=== PATIENT | male | born 1955 | race Two or more races ===

== ENCOUNTER 2018-02-10 19:08 | Inpatient (IN) | payer OTHER ==
[~2018-02-10] VITALS: Ht 177.8 cm; Wt 90.7 kg
[~2018-02-10 19:08] MED LIST: ALEVE220 M2 PO; CARAFATE1 G1 NG; COLACE100 MG ORAL; FEOSOL325 MG ORAL; LEVAQUIN500 MG ORAL; MIRALAX17 G2 ORAL; NORCO 5-325 TA1 EACH ORAL; PROTONIX40 MG ORAL; REGLAN5 MG ORAL; SLOW-MAG64 MG PO; TYLENOL EXTRA500 MG ORAL
[2018-02-10] MEDS ORDERED: Sodium Chloride 500ML 500 ML IV ONE (19:13)
[2018-02-10] MEDS ORDERED: Octreotide Acetate 500 MCG in Sodium Chloride 500ML 499 ML IV STA (19:27)
[2018-02-10 19:30] VITALS: BP 117/66
[2018-02-10] MEDS ORDERED: Pantoprazole Inj IVP ONE (19:30)
[2018-02-10] MEDS ORDERED: Pantoprazole 80 MG in NS 250 ML IV ONE (19:30)
[2018-02-10 19:41] LABS: HEMOGLOBIN 12.2 G/DL (14.2-18.0); MEAN CORPUSCULAR VOLUME 98 FL (80-99); PLATELET COUNT 382 K/UL (150-450); RED BLOOD COUNT 3.55 M/UL (4.70-6.10); RED CELL DISTRIBUTION WIDTH 12.9 % (11.6-14.8); WHITE BLOOD COUNT 21.8 K/UL (4.8-10.8)
[2018-02-10 19:49] LABS: ANION GAP 17 mmol/L (5-15); BLOOD UREA NITROGEN 108 mg/dL (7-18); CALCIUM 9.2 MG/DL (8.5-10.1); CARBON DIOXIDE 29 MMOL/L (21-32); CHLORIDE 83 MMOL/L (98-107); CREATININE 5.5 MG/DL (0.55-1.30); SODIUM 128 MMOL/L (136-145)
--- NOTE | 2018-02-10 19:56 | Emergency Room Report ---
History of Present Illness General Chief Complaint: Gastrointestinal Bleed Source: Patient Present Illness HPI Patient presents with complaints of vomiting bright red blood Patient has history of significant GI hemorrhage Had previous alcohol disease reports that he drinks regularly still Denies any diarrhea denies any blood in his stool He has epigastric pain Symptoms started earlier today Patient denies any recent travel or trauma Allergies: Coded Allergies: ASPIRIN (Verified Allergy, Mild, 10/20/14) Patient History Past Medical History: see triage record Pertinent Family History: none Reviewed Nursing Documentation: PMH: Agreed; PSxH: Agreed Nursing Documentation-PMH Hx Cardiac Problems: No Hx Cancer: No Hx Gastrointestinal Problems: Yes - Describes past GIB - states, "something popped in my stomach" ~ 2 yrs ago Hx Neurological Problems: No Hx Weakness: Yes Review of Systems All Other Systems: negative except mentioned in HPI Physical Exam Vital Signs Date Time Temp Pulse Resp B/P (MAP) Pulse Ox O2 Delivery O2 Flow Rate FiO2 02/10/18 19:04 98.2 116 20 86/67 98 Room Air Sp02 EP Interpretation: reviewed, normal General Appearance: mild distress - Cachectic and jaundice Head: normocephalic, atraumatic Eyes: bilateral eye PERRL, bilateral eye scleral icterus ENT: normal pharynx, no angioedema Neck: supple Respiratory: lungs clear, normal breath sounds Cardiovascular #1: regular rate, rhythm, no edema Gastrointestinal: non tender, soft, no mass Musculoskeletal: normal inspection Neurologic: alert, oriented x3, responsive Skin: pallor, jaundice Lymphatic: no adenopathy Procedures Critical Care Time Critical Care Time 80 minutes for critical presentation, hypotensive presentation and reports of GI bleed, requiring multiple re-evaluations concern for cardiopulmonary arrest and possible not including any procedural time Medical Decision Making Diagnostic Impression: Primary Impression: Gastrointestinal hemorrhage Additional Impressions: Leukocytosis Discitis ER Course Given the patient's history and presentation multiple differentials are considered Patient has significant history with previous surgery here Exploratory laparotomy previous GI bleed Patient is initiated on aggressive intervention Hemoglobin level returns at 12 at this time Given the patient's improvement with his blood pressure and heart rate Acute transfusion has been held however other acute intervention continuing Patient's white blood cell count is significantly elevated CT imaging reveals some evidence of discitis, there is also concern of infection Urine sample has previously been infected and patient was started on spectrum antibiotics Labs Test 02/10/18 19:15 White Blood Count 21.8 K/UL (4.8-10.8) Red Blood Count 3.55 M/UL (4.70-6.10) Hemoglobin 12.2 G/DL (14.2-18.0) Hematocrit 35.0 % (42.0-52.0) Mean Corpuscular Volume 98 FL (80-99) Mean Corpuscular Hemoglobin 34.2 PG (27.0-31.0) Mean Corpuscular Hemoglobin Concent 34.8 G/DL (32.0-36.0) Red Cell Distribution Width 12.9 % (11.6-14.8) Platelet Count 382 K/UL (150-450) Mean Platelet Volume 7.9 FL (6.5-10.1) Neutrophils (%) (Auto) % (45.0-75.0) Lymphocytes (%) (Auto) % (20.0-45.0) Monocytes (%) (Auto) % (1.0-10.0) Eosinophils (%) (Auto) % (0.0-3.0) Basophils (%) (Auto) % (0.0-2.0) Prothrombin Time 10.9 SEC (9.30-11.50) Prothromb Time International Ratio 1.0 (0.9-1.1) Activated Partial Thromboplast Time 34 SEC (23-33) Sodium Level 128 MMOL/L (136-145) Potassium Level 3.0 MMOL/L (3.5-5.1) Chloride Level 83 MMOL/L (98-107) Carbon Dioxide Level 29 MMOL/L (21-32) Anion Gap 17 mmol/L (5-15) Blood Urea Nitrogen 108 mg/dL (7-18) Creatinine 5.5 MG/DL (0.55-1.30) Estimat Glomerular Filtration Rate 10.5 mL/min (>60) Glucose Level 122 MG/DL (74-106) Calcium Level 9.2 MG/DL (8.5-10.1) Total Bilirubin 1.0 MG/DL (0.2-1.0) Aspartate Amino Transf (AST/SGOT) 72 U/L (15-37) Alanine Aminotransferase (ALT/SGPT) 18 U/L (12-78) Alkaline Phosphatase 264 U/L (46-116) Total Creatine Kinase 33 U/L (26-308) Creatine Kinase MB 0.9 NG/ML (0.0-3.6) Creatine Kinase MB Relative Index 2.7 Troponin I 0.000 ng/mL (0.000-0.056) Total Protein 7.5 G/DL (6.4-8.2) Albumin 1.9 G/DL (3.4-5.0) Globulin 5.6 g/dL Albumin/Globulin Ratio 0.3 (1.0-2.7) Rhythm Strip Diag. Results EP Interpretation: yes Rate: 77 Rhythm: NSR, no PVC's, no ectopy CT/MRI/US Diagnostic Results CT/MRI/US Diagnostic Results : Impression CT abdomen pelvisIMPRESSION: Thickening of the distal wall of the esophagus. Consider EGD for further evaluation. Cholelithiasis. Nonobstructive stone in the right kidney. Normal appendix Obscured pelvis due to bilateral hip prosthetics. Moderate degenerative changes of the spine. Last Vital Signs Date Time Temp Pulse Resp B/P (MAP) Pulse Ox O2 Delivery O2 Flow Rate FiO2 02/10/18 19:30 98.2 111 20 117/66 98 Room Air Status: improved Disposition: ADMITTED INPATIENT Condition: Critical Rahel Jolley DO Feb 10, 2018 19:56
[2018-02-10 20:00] VITALS: BP 129/68
[2018-02-10 20:02] LABS: ALANINE AMINOTRANSFERASE 18 U/L (12-78); ALBUMIN 1.9 G/DL (3.4-5.0); ALBUMIN/GLOBULIN RATIO 0.3 (1.0-2.7); ALKALINE PHOSPHATASE 264 U/L (46-116); ASPARTATE AMINO TRANSFERASE 72 U/L (15-37); CKMB 0.9 NG/ML (0.0-3.6); CREATINE KINASE 33 U/L (26-308)
[2018-02-10 21:00] VITALS: BP 122/64
[2018-02-10] MEDS ORDERED: cefTRIAXone 1 GM in NS 55 ML IVPB ONE (21:00)
[2018-02-10] MEDS ORDERED: Morphine Sulfate 2mg/ml Inj IVP ONE (21:15)
[2018-02-10] MEDS ORDERED: Piperacillin/Tazobactam 3.375 GM in NS 110 ML IVPB ONE (21:30)
[2018-02-10 22:00] VITALS: BP 133/67
[2018-02-10 23:00] VITALS: BP 121/70
[2018-02-11] VITALS (18 sets, daily range): BP systolic 113–145; BP diastolic 58–78
[2018-02-11] MEDS ORDERED: Vancomycin 1gm in D5W 275ml IVPB SCH (02:00)
[2018-02-11] MEDS ORDERED: Vancomycin 750mg/NS 250ml IVPB SCH (02:00)
[2018-02-11 03:29] LABS: HEMATOCRIT 26.5 % (42.0-52.0); HEMOGLOBIN 9.3 G/DL (14.2-18.0); MEAN CORPUSCULAR VOLUME 99 FL (80-99); PLATELET COUNT 312 K/UL (150-450); RED BLOOD COUNT 2.67 M/UL (4.70-6.10); RED CELL DISTRIBUTION WIDTH 13.2 % (11.6-14.8); WHITE BLOOD COUNT 19.6 K/UL (4.8-10.8)
[2018-02-11 03:39] LABS: ANION GAP 11 mmol/L (5-15); BLOOD UREA NITROGEN 108 mg/dL (7-18); CALCIUM 7.5 MG/DL (8.5-10.1); CARBON DIOXIDE 27 MMOL/L (21-32); CHLORIDE 95 MMOL/L (98-107); POTASSIUM 3.2 MMOL/L (3.5-5.1); SODIUM 133 MMOL/L (136-145)
[2018-02-11 03:44] LABS: ALANINE AMINOTRANSFERASE 8 U/L (12-78); ALBUMIN 1.4 G/DL (3.4-5.0); ALBUMIN/GLOBULIN RATIO 0.3 (1.0-2.7); ALKALINE PHOSPHATASE 186 U/L (46-116); ASPARTATE AMINO TRANSFERASE 45 U/L (15-37)
[2018-02-11] MEDS: Piperacillin/Tazobactam 2.25 GM in D5W 55 ML IVPB SCH ×4 (05:24→21:55)
[2018-02-11] MEDS: Pantoprazole 80 MG in NS 250 ML IV SCH ×3 (05:25→18:46)
[2018-02-11] MEDS ORDERED: Octreotide Acetate 500 MCG in Sodium Chloride 500ML 499 ML IV SCH (06:00)
--- NOTE | 2018-02-11 09:36 | Diagnostic Imaging Report ---
Indication: Abdominal pain Technique: Continuous helical transaxial imaging of the abdomen and pelvis was obtained from the lung bases to the pubic symphysis. No intravenous contrast was administered. Coronal 2-D reformats were also obtained. Automatic Exposure Control was utilized. Total Dose length Product (DLP): 864.[address] Dose Index Volume (CTDIvol): 16.38 mGy Comparison: 02/20/2014 Findings: There is a mild cylindrical bronchiectasis at the lung bases associated with the some linear opacities likely scarring. There is thickening of the wall the distal esophagus again demonstrated. No oral contrast was given. The stomach is nondistended. There is a gallstone present. There is a nonobstructive renal stone within the central portion of the right kidney measuring about 4 mm. There is no hydronephrosis currently demonstrated. The pelvis is moderately obscured due to bilateral hip prostheses and resultant streak artifact. A normal appendix is demonstrated. There is narrowing of intervertebral discs and accompanying endplate osteophyte formation. Hypertrophied facet joints also demonstrated.. The spleen is absent but there are spleen-like foci within the left upper quadrant of abdomen, the appearance of which is unchanged from the last study. Aortoiliac calcifications are present. IMPRESSION: Thickening of the distal wall of the esophagus. Consider EGD for further evaluation. Cholelithiasis. Nonobstructive stone in the right kidney. Normal appendix Obscured pelvis due to bilateral hip prosthetics. Moderate degenerative changes of the spine. [facility] has communicated the preliminary results to the Emergency Department. Their findings are largely concordant with this report. The CT scanner at [facility] is accredited by the [employer] and the scans are performed using dose optimization techniques as appropriate to a performed exam including Automatic Exposure control.
--- NOTE | 2018-02-11 10:12 | Diagnostic Imaging Report ---
Indication:Elevated Bun and Creatinine. Technique: Grayscale and duplex Doppler imaging of the kidneys performed. Comparison: None Findings: Right kidney appears normal and measures 11.4 cm. There is an echogenic focus in the midpole the left kidney possibly a nonobstructive stone. There is no hydronephrosis. The left kidney measures 11.6 cm in length. Cortical echogenicity appears relatively normal bilaterally. The urinary bladder is moderately distended. IVC is unremarkable. There is incidental increased echogenicity of the liver consistent with fatty infiltration. IMPRESSION: No obstructive nephropathy. Suspected small nonobstructive stone left kidney. Distended urinary bladder. Consider Stoner catheter. Fatty liver
[2018-02-11] MEDS ORDERED: Morphine Sulfate 2mg/ml Inj IVP PRN (10:30)
--- NOTE | 2018-02-11 11:12 | Diagnostic Imaging Report ---
Indication: Chest pain Comparison: 11/05/2014 A single view chest radiograph was obtained. Findings: There are multiple old rib fractures on the right. These appear old. Heart size is normal. Lungs are clear. IMPRESSION: No acute disease
[2018-02-11 11:27] LABS: CREATINE KINASE 25 U/L (26-308)
[2018-02-11 11:27] LABS: HEMATOCRIT 26.4 % (42.0-52.0); MEAN CORPUSCULAR VOLUME 100 FL (80-99); PLATELET COUNT 312 K/UL (150-450); RED BLOOD COUNT 2.64 M/UL (4.70-6.10); RED CELL DISTRIBUTION WIDTH 13.1 % (11.6-14.8); WHITE BLOOD COUNT 20.7 K/UL (4.8-10.8)
[2018-02-11 11:52] LABS: COLOR,URINE BROWN; GLUCOSE, URINE (UA) NEGATIVE (NEGATIVE); KETONES,URINE 1+ (NEGATIVE); LEUKOCYTE ESTERASE ,URINE 3+ (NEGATIVE); NITRITE,URINE NEGATIVE (NEGATIVE); PH,URINE 5 (4.5-8.0); PROTEIN,URINE 3+ (NEGATIVE); UROBILINOGEN,URINE 1 MG/DL (0.0-1.0)
[2018-02-11 11:55] LABS: APPEARANCE,URINE CLOUDY; BILIRUBIN, URINE NEGATIVE (NEGATIVE)
[2018-02-11] MEDS ORDERED: NS 500ML IVPB ONE (12:30)
--- NOTE | 2018-02-11 12:43 | Pre-Procedure Note/Attestation ---
Pre-Procedure Note/Attestation Complete Prior to Procedure Planned Procedure: not applicable Procedure Narrative: egd Indications for Procedure Pre-Operative Diagnosis: gib Attestation I attest that I discussed the nature of the procedure; its benefits; risks and complications; and alternatives (and the risks and benefits of such alternatives ), prior to the procedure, with the patient (or the patient's legal client service representative). I attest that, if there was a reasonable possibility of needing a blood transfusion, the patient (or the patient's legal client service representative) was given the [facility] standardized written summary, pursuant to the Marcio Brandon Blood Safety Act ([place] Health and Safety Code # 1645, as amended). I attest that I re-evaluated the patient just prior to the surgery and that there has been no change in the patient's H&P, except as documented below: David Hernandez MD Feb 11, 2018 12:43
[2018-02-11] MEDS ORDERED: Lidocaine 1% MPF 10mg/ml 5ml ONE (13:00)
[2018-02-11] MEDS ORDERED: Propofol 200mg/20ml IV ONE (13:00)
--- NOTE | 2018-02-11 13:20 | GI Initial Consult Note ---
History of Present Illness General Date patient seen: Feb 11, 2018 Time patient seen: 11:00 Reason for Hospitalization: Gastrointestinal Bleed Referring physician: LUCIE BOURGEOIS Reason for Consultation: GI BLEED Present Illness HPI Patient presents with complaints of vomiting bright red blood Patient has history of significant GI hemorrhage Had previous alcohol disease reports that he drinks regularly still Denies any diarrhea denies any blood in his stool He has epigastric pain Symptoms started earlier today Patient denies any recent travel or trauma GI consulted for GI bleed. Pt scheduled for EGD today. Has history of EGD with cauterization and epinephrine injection for hemostasis. Secondary to bleeding vessel, thought to be suspicious for Dieulafoy lesion on the initial endoscopy on 10/31/14. Home Meds Reported Medications Acetaminophen* (TYLENOL EXTRA STRENGTH*) 500 Mg Tablet, 500 MG ORAL Q4HR PRN for Mild Pain/Temp > 100.5, TAB 0 Refills 10/20/14 Med list reviewed/reconciled: Yes Allergies: Coded Allergies: ASPIRIN (Verified Allergy, Mild, 10/20/14) Patient History History Provided By: Patient, Medical Record PMH Narrative Past Medical History: see triage record Pertinent Family History: none Reviewed Nursing Documentation: PMH: Agreed; PSxH: Agreed Nursing Documentation-PMH Hx Cardiac Problems: No Hx Cancer: No Hx Gastrointestinal Problems: Yes - Describes past GIB - states, "something popped in my stomach" ~ 2 yrs ago Hx Neurological Problems: No Hx Weakness: Yes Social History: Reports: alcohol use Review of Systems All Other Systems: negative except mentioned in HPI Physical Exam Vital Signs Date Time Temp Pulse Resp B/P (MAP) Pulse Ox O2 Delivery O2 Flow Rate FiO2 02/10/18 19:04 98.2 116 20 86/67 98 Room Air 02/11/18 06:00 2.0 Sp02 EP Interpretation: reviewed, normal Labs Laboratory Tests Test 02/10/18 19:15 02/10/18 20:45 02/10/18 21:20 02/11/18 03:00 White Blood Count 21.8 K/UL (4.8-10.8) H 19.6 K/UL (4.8-10.8) H Red Blood Count 3.55 M/UL (4.70-6.10) L 2.67 M/UL (4.70-6.10) L Hemoglobin 12.2 G/DL (14.2-18.0) L 9.3 G/DL (14.2-18.0) L Hematocrit 35.0 % (42.0-52.0) L 26.5 % (42.0-52.0) L Mean Corpuscular Volume 98 FL (80-99) 99 FL (80-99) Mean Corpuscular Hemoglobin 34.2 PG (27.0-31.0) H 34.7 PG (27.0-31.0) H Mean Corpuscular Hemoglobin Concent 34.8 G/DL (32.0-36.0) 34.9 G/DL (32.0-36.0) Red Cell Distribution Width 12.9 % (11.6-14.8) 13.2 % (11.6-14.8) Platelet Count 382 K/UL (150-450) 312 K/UL (150-450) Mean Platelet Volume 7.9 FL (6.5-10.1) 7.9 FL (6.5-10.1) Neutrophils (%) (Auto) % (45.0-75.0) % (45.0-75.0) Lymphocytes (%) (Auto) % (20.0-45.0) % (20.0-45.0) Monocytes (%) (Auto) % (1.0-10.0) % (1.0-10.0) Eosinophils (%) (Auto) % (0.0-3.0) % (0.0-3.0) Basophils (%) (Auto) % (0.0-2.0) % (0.0-2.0) Differential Total Cells Counted 100 Neutrophils % (Manual) 77 % (45-75) H Lymphocytes % (Manual) 13 % (20-45) L Monocytes % (Manual) 10 % (1-10) Eosinophils % (Manual) 0 % (0-3) Basophils % (Manual) 0 % (0-2) Band Neutrophils 0 % (0-8) Platelet Estimate Adequate Platelet Morphology Normal Red Blood Cell Morphology Normal Prothrombin Time 10.9 SEC (9.30-11.50) Prothromb Time International Ratio 1.0 (0.9-1.1) Activated Partial Thromboplast Time 34 SEC (23-33) H Sodium Level 128 MMOL/L (136-145) L 133 MMOL/L (136-145) L Potassium Level 3.0 MMOL/L (3.5-5.1) L 3.2 MMOL/L (3.5-5.1) L Chloride Level 83 MMOL/L (98-107) L 95 MMOL/L (98-107) L Carbon Dioxide Level 29 MMOL/L (21-32) 27 MMOL/L (21-32) Anion Gap 17 mmol/L (5-15) H 11 mmol/L (5-15) Blood Urea Nitrogen 108 mg/dL (7-18) H 108 mg/dL (7-18) H Creatinine 5.5 MG/DL (0.55-1.30) H 5.0 MG/DL (0.55-1.30) H Estimat Glomerular Filtration Rate 10.5 mL/min (>60) 11.7 mL/min (>60) Glucose Level 122 MG/DL (74-106) H 114 MG/DL (74-106) H Calcium Level 9.2 MG/DL (8.5-10.1) 7.5 MG/DL (8.5-10.1) L Total Bilirubin 1.0 MG/DL (0.2-1.0) 1.0 MG/DL (0.2-1.0) Aspartate Amino Transf (AST/SGOT) 72 U/L (15-37) H 45 U/L (15-37) H Alanine Aminotransferase (ALT/SGPT) 18 U/L (12-78) 8 U/L (12-78) L Alkaline Phosphatase 264 U/L (46-116) H 186 U/L (46-116) H Total Creatine Kinase 33 U/L (26-308) 25 U/L (26-308) L Creatine Kinase MB 0.9 NG/ML (0.0-3.6) Creatine Kinase MB Relative Index 2.7 Troponin I 0.000 ng/mL (0.000-0.056) Total Protein 7.5 G/DL (6.4-8.2) 5.7 G/DL (6.4-8.2) L Albumin 1.9 G/DL (3.4-5.0) L 1.4 G/DL (3.4-5.0) L Globulin 5.6 g/dL 4.3 g/dL Albumin/Globulin Ratio 0.3 (1.0-2.7) L 0.3 (1.0-2.7) L Serum Alcohol < 2 mg/dL Urine Opiates Screen Negative (NEGATIVE) Urine Barbiturates Screen Negative (NEGATIVE) Phencyclidine (PCP) Screen Negative (NEGATIVE) Urine Amphetamines Screen Negative (NEGATIVE) Urine Benzodiazepines Screen Negative (NEGATIVE) Urine Cocaine Screen Negative (NEGATIVE) Urine Marijuana (THC) Screen Positive (NEGATIVE) H Lactic Acid Level 2.30 mmol/L (0.4-2.0) H 1.40 mmol/L (0.4-2.0) Test 02/11/18 11:00 White Blood Count 20.7 K/UL (4.8-10.8) H Red Blood Count 2.64 M/UL (4.70-6.10) L Hemoglobin 9.0 G/DL (14.2-18.0) L Hematocrit 26.4 % (42.0-52.0) L Mean Corpuscular Volume 100 FL (80-99) H Mean Corpuscular Hemoglobin 34.0 PG (27.0-31.0) H Mean Corpuscular Hemoglobin Concent 34.0 G/DL (32.0-36.0) Red Cell Distribution Width 13.1 % (11.6-14.8) Platelet Count 312 K/UL (150-450) Mean Platelet Volume 8.2 FL (6.5-10.1) Neutrophils (%) (Auto) % (45.0-75.0) Lymphocytes (%) (Auto) % (20.0-45.0) Monocytes (%) (Auto) % (1.0-10.0) Eosinophils (%) (Auto) % (0.0-3.0) Basophils (%) (Auto) % (0.0-2.0) Differential Total Cells Counted 100 Neutrophils % (Manual) 81 % (45-75) H Lymphocytes % (Manual) 11 % (20-45) L Monocytes % (Manual) 8 % (1-10) Eosinophils % (Manual) 0 % (0-3) Basophils % (Manual) 0 % (0-2) Band Neutrophils 0 % (0-8) Platelet Estimate Adequate Platelet Morphology Normal Hypochromasia 2+ Anisocytosis 1+ Urine Color Brown Urine Appearance Cloudy Urine pH 5 (4.5-8.0) Urine Specific [place] 1.010 (1.005-1.035) Urine Protein 3+ (NEGATIVE) H Urine Glucose (UA) Negative (NEGATIVE) Urine Ketones 1+ (NEGATIVE) H Urine Blood 5+ (NEGATIVE) H Urine Nitrite Negative (NEGATIVE) Urine Bilirubin Negative (NEGATIVE) Urine Urobilinogen 1 MG/DL (0.0-1.0) H Urine Leukocyte Esterase 3+ (NEGATIVE) H Urine RBC Tntc /HPF (0 - 0) H Urine WBC 40-60 /HPF (0 - 0) H Urine Squamous Epithelial Cells Few /LPF (NONE/OCC) Urine Amorphous Sediment Many /LPF (NONE) H Urine Bacteria Many /HPF (NONE) H Urine Osmolality 378 mOsm/kg (429-449) L Urine Random Sodium 21 mmol/L (20-110) Urine Creatinine 107.1 MG/DL (30.0-125.0) General Appearance: well appearing, no apparent distress, alert Head: normocephalic EENT: PERRL/EOMI, normal ENT inspection Neck: supple Respiratory: normal breath sounds, no respiratory distress Cardiovascular: normal rate Gastrointestinal: normal inspection, non tender, soft, normal bowel sounds, non -distended Rectal: deferred Genitourinary: deferred Musculoskeletal: normal inspection, back normal Neurologic: normal inspection, alert, oriented x3, responsive Psychiatric: normal inspection, judgement/insight normal, memory normal Skin: normal inspection, normal color, no rash, warm/dry, palpation normal, well hydrated Lymphatic: normal inspection, no adenopathy Current Medications Current Medications Medications (Trade) Dose Ordered Sig/Faheem Route PRN Reason Start Time Stop Time Status Last Admin Dose Admin Bisacodyl (Dulcolax) 10 mg DAILYPRN PRN RECTAL Constipation 02/11/18 10:30 03/13/18 10:29 Morphine Sulfate (Morphine Sulfate) 1 mg Q4H PRN IVP Severe Pain (Pain Scale 7-10) 02/11/18 10:30 02/18/18 10:29 02/11/18 10:31 Octreotide Acetate 500 mcg/ Sodium Chloride 500 ml @ 50 mls/hr Q10H IV 02/11/18 06:00 03/13/18 05:59 02/11/18 05:24 Ondansetron HCl (Zofran) 4 mg Q6H PRN IVP Nausea & Vomiting 02/11/18 10:30 03/13/18 10:29 02/11/18 10:31 Pantoprazole 80 mg/Sodium Chloride 250 ml @ 25 mls/hr Q10H IV 02/11/18 06:00 03/13/18 05:59 02/11/18 08:25 Piperacillin Sod/ Tazobactam Sod 2.25 gm/Dextrose 55 ml @ 110 mls/hr Q8HR IVPB 02/11/18 06:00 02/18/18 05:59 02/11/18 05:24 Sodium Chloride 1,000 ml @ 125 mls/hr Q8H IV 02/10/18 22:00 03/12/18 21:59 02/11/18 05:25 Vancomycin HCl (Vanco rx to dose) 1 ea DAILY PRN MISC Per rx protocol 02/11/18 01:45 03/13/18 01:44 GI: Plan Problems: (1) Upper GI bleed (2) Anemia (3) Gastrointestinal hemorrhage (4) Esophagitis (5) Upper GI bleed (6) Gastrointestinal hemorrhage (7) Anemia (8) Esophageal ulcer (9) Acute blood loss anemia Plan EGD scheduled today. maintain NPO + IVFs ppi gtt octreotide gtt will follow with additional recs post procedure. Discussed with Dr. Hernandez. Thank you for this patient referral, we will follow. The patient was seen and examined at bedside and all new and available data was reviewed in the patients chart. I agree with the above findings, impression and plan. (Patient seen earlier today. Signature stamp does not reflect patient encounter time.). - MD [facility] Feb 11, 2018 13:20
--- NOTE | 2018-02-11 13:24 | Endoscopy Procedure Note ---
Endoscopy Procedure Note General Indication for Procedure: gib Procedures Performed: EGD Operative Findings/Diagnosis: esophagitis Specimen: yes Pt Tolerated Procedure Well: Yes Estimated Blood Loss: none Anesthesia Anesthesiologist: thais Anesthesia: MAC Inserted Devices Implant(s) used?: No GI Core Measures 50 yrs or older w/o bx or poly: Not Applicable 10yrs. F/U not recommended: Not Applicable David Hernandez MD Feb 11, 2018 13:24
[2018-02-11] MEDS ORDERED: fentaNYL 100 mcg/2 mL IV PRN ×2 (13:45→16:00)
[2018-02-11] MEDS ORDERED: Midazolam 2mg/2ml Inj IVP PRN ×2 (13:45→16:00)
[2018-02-11] MEDS ORDERED: Atropine Inj 1mg/10ml Syr IV PRN ×2 (13:45→16:00)
[2018-02-11] MEDS ORDERED: DiphenhydrAMINE 50mg/ml Inj IVP PRN ×2 (13:45→16:00)
--- NOTE | 2018-02-11 15:29 | Cardiology Report ---
APPROVED REPORT EKG Measurement Heart [id number] Sinus tachycardia Abnormal QRS-T angle, consider primary T wave abnormality Abnormal ECG
--- NOTE | 2018-02-11 15:49 | Anethesia Preoperative Eval ---
Anesthesia Pre-op PMH/ROS General Date of Evaluation: Feb 11, 2018 Time of Evaluation: 13:02 Anesthesiologist: thais ASA Score: ASA 3 Mallampati Score Class I : Soft palate, uvula, fauces, pillars visible Class II: Soft palate, uvula, fauces visible Class III: Soft palate, base of uvula visible Class IV: Only hard plate visible Mallampati Classification: Class II Surgeon: jaime Diagnosis: gi bleed Surgical Procedure: egd Anesthesia History: none Social History: smoking, alcohol use Family History: no anesthesia problems Allergies: Coded Allergies: ASPIRIN (Verified Allergy, Mild, 10/20/14) Medications: see eMAR Patient NPO?: Yes Past Medical History Pulmonary: Reports: other - gi bleed Gastrointestinal/Genitourinary: Reports: GERD, other - hematemesis Neurologic/Psychiatric: Reports: other Hematology/Immune: Reports: anemia Musculoskeletal/Integumentary: Reports: OA Anesthesia Pre-op Phys. Exam Physician Exam Last Vital Signs Date Time Temp Pulse Resp B/P (MAP) Pulse Ox O2 Delivery O2 Flow Rate FiO2 02/11/18 15:00 101 26 133/61 93 Room Air 02/11/18 13:42 97.3 02/11/18 10:00 2.0 Constitutional: NAD Neurologic: CN 2-12 intact Cardiovascular: RRR Respiratory: CTA Gastrointestinal: S/NT/ND Airway Exam Mallampati Score: Class II MO: limited Neck: flexible TMD: 2fb ROM: limited Teeth: missing Anesthesia Pre-op A/P Labs Hematology Test 02/10/18 19:15 02/11/18 03:00 02/11/18 11:00 White Blood Count 21.8 K/UL (4.8-10.8) H 19.6 K/UL (4.8-10.8) H 20.7 K/UL (4.8-10.8) H Red Blood Count 3.55 M/UL (4.70-6.10) L 2.67 M/UL (4.70-6.10) L 2.64 M/UL (4.70-6.10) L Hemoglobin 12.2 G/DL (14.2-18.0) L 9.3 G/DL (14.2-18.0) L 9.0 G/DL (14.2-18.0) L Hematocrit 35.0 % (42.0-52.0) L 26.5 % (42.0-52.0) L 26.4 % (42.0-52.0) L Mean Corpuscular Volume 98 FL (80-99) 99 FL (80-99) 100 FL (80-99) H Mean Corpuscular Hemoglobin 34.2 PG (27.0-31.0) H 34.7 PG (27.0-31.0) H 34.0 PG (27.0-31.0) H Mean Corpuscular Hemoglobin Concent 34.8 G/DL (32.0-36.0) 34.9 G/DL (32.0-36.0) 34.0 G/DL (32.0-36.0) Red Cell Distribution Width 12.9 % (11.6-14.8) 13.2 % (11.6-14.8) 13.1 % (11.6-14.8) Platelet Count 382 K/UL (150-450) 312 K/UL (150-450) 312 K/UL (150-450) Mean Platelet Volume 7.9 FL (6.5-10.1) 7.9 FL (6.5-10.1) 8.2 FL (6.5-10.1) Neutrophils (%) (Auto) % (45.0-75.0) % (45.0-75.0) % (45.0-75.0) Lymphocytes (%) (Auto) % (20.0-45.0) % (20.0-45.0) % (20.0-45.0) Monocytes (%) (Auto) % (1.0-10.0) % (1.0-10.0) % (1.0-10.0) Eosinophils (%) (Auto) % (0.0-3.0) % (0.0-3.0) % (0.0-3.0) Basophils (%) (Auto) % (0.0-2.0) % (0.0-2.0) % (0.0-2.0) Differential Total Cells Counted 100 100 Neutrophils % (Manual) 77 % (45-75) H 81 % (45-75) H Lymphocytes % (Manual) 13 % (20-45) L 11 % (20-45) L Monocytes % (Manual) 10 % (1-10) 8 % (1-10) Eosinophils % (Manual) 0 % (0-3) 0 % (0-3) Basophils % (Manual) 0 % (0-2) 0 % (0-2) Band Neutrophils 0 % (0-8) 0 % (0-8) Platelet Estimate Adequate Adequate Platelet Morphology Normal Normal Red Blood Cell Morphology Normal Hypochromasia 2+ Anisocytosis 1+ Coagulation Test 02/10/18 19:15 Prothrombin Time 10.9 SEC (9.30-11.50) Prothromb Time International Ratio 1.0 (0.9-1.1) Activated Partial Thromboplast Time 34 SEC (23-33) H Chemistry Test 02/10/18 19:15 02/10/18 21:20 02/11/18 03:00 Sodium Level 128 MMOL/L (136-145) L 133 MMOL/L (136-145) L Potassium Level 3.0 MMOL/L (3.5-5.1) L 3.2 MMOL/L (3.5-5.1) L Chloride Level 83 MMOL/L (98-107) L 95 MMOL/L (98-107) L Carbon Dioxide Level 29 MMOL/L (21-32) 27 MMOL/L (21-32) Anion Gap 17 mmol/L (5-15) H 11 mmol/L (5-15) Blood Urea Nitrogen 108 mg/dL (7-18) H 108 mg/dL (7-18) H Creatinine 5.5 MG/DL (0.55-1.30) H 5.0 MG/DL (0.55-1.30) H Estimat Glomerular Filtration Rate 10.5 mL/min (>60) 11.7 mL/min (>60) Glucose Level 122 MG/DL (74-106) H 114 MG/DL (74-106) H Calcium Level 9.2 MG/DL (8.5-10.1) 7.5 MG/DL (8.5-10.1) L Total Bilirubin 1.0 MG/DL (0.2-1.0) 1.0 MG/DL (0.2-1.0) Aspartate Amino Transf (AST/SGOT) 72 U/L (15-37) H 45 U/L (15-37) H Alanine Aminotransferase (ALT/SGPT) 18 U/L (12-78) 8 U/L (12-78) L Alkaline Phosphatase 264 U/L (46-116) H 186 U/L (46-116) H Total Creatine Kinase 33 U/L (26-308) 25 U/L (26-308) L Creatine Kinase MB 0.9 NG/ML (0.0-3.6) Creatine Kinase MB Relative Index 2.7 Troponin I 0.000 ng/mL (0.000-0.056) Total Protein 7.5 G/DL (6.4-8.2) 5.7 G/DL (6.4-8.2) L Albumin 1.9 G/DL (3.4-5.0) L 1.4 G/DL (3.4-5.0) L Globulin 5.6 g/dL 4.3 g/dL Albumin/Globulin Ratio 0.3 (1.0-2.7) L 0.3 (1.0-2.7) L Lactic Acid Level 2.30 mmol/L (0.4-2.0) H 1.40 mmol/L (0.4-2.0) Risk Assessment & Plan Assessment: asa3 Plan: mac Status Change Before Surgery: No Pre-Antibiotics Drug: Isabel العراقي MD Feb 11, 2018 15:49
--- NOTE | 2018-02-11 15:51 | Immediate Post-Op Evaluation ---
Immediate Post-Op Evalulation Immediate Post-Op Evalulation Procedure: egd/bx Date of Evaluation: Feb 11, 2018 Time of Evaluation: 13:47 IV Fluids: 400ml 0.9ns Blood Products: none Estimated Blood Loss: negligible Blood Pressure Systolic: 110 Blood Pressure Diastolic: 70 Pulse Rate: 100 Respiratory Rate: 18 O2 Sat by Pulse Oximetry: 99 Temperature (Fahrenheit): 97.6 Pain Score (1-10): 0 Nausea: No Vomiting: No Complications none Patient Status: awake, reacts, patent Hydration Status: adequate Drug: Isabel العراقي MD Feb 11, 2018 15:51
--- NOTE | 2018-02-11 15:53 | 48 Hour Post Anesthesia Eval ---
Post Anesthesia Evaluation Procedure: egd/bx Date of Evaluation: Feb 11, 2018 Time of Evaluation: 13:49 Blood Pressure Systolic: 113 0: 78 Pulse Rate: 92 Respiratory Rate: 18 Temperature (Fahrenheit): 97.6 O2 Sat by Pulse Oximetry: 99 Airway: patent Nausea: No Vomiting: No Pain Intensity: 0 Hydration Status: adequate Cardiopulmonary Status: stable Mental Status/LOC: patient returned to baseline Post-Anesthesia Complications: none Follow-up care needed: N/A Isabel Elaine MD Feb 11, 2018 15:53
--- NOTE | 2018-02-11 16:45 | History and Physical Report ---
DATE OF ADMISSION: 02/10/2018 CHIEF COMPLAINT: Gastrointestinal bleed. HISTORY OF PRESENT ILLNESS: The patient is a 62-year-old male. He has a prior history of esophageal varices and GI bleed. He has a history of hip replacement surgery, psoriasis who presented from home with complaints of vomiting blood. According the patient, he has been well until several days prior to admission. He had four episodes daily of vomiting of bright red blood. He does have a prior history of peptic ulcer disease and has required prior endoscopy because of bleeding. He denies any alcohol use, takes no NSAIDs or aspirin. On evaluation in the emergency room, the patient's hemoglobin was 12. It currently has dropped down to 9.3. He denies any melena or bright red blood per rectum. He was also noted on laboratories to have a creatinine of 5.5. The patient denies any prior history of kidney problems. The patient has been started on IV Protonix and octreotide drip and is now admitted to intensive care unit. PAST MEDICAL HISTORY: As above. PAST SURGICAL HISTORY: Includes hip surgery. CURRENT MEDICATIONS: Reconciled and reviewed. ALLERGIES: Include aspirin. FAMILY HISTORY: Noncontributory. SOCIAL HISTORY: There is no known history of tobacco or drugs. The patient was a heavy drinker but is abstinent now for four years. REVIEW OF SYSTEMS: GENERAL: No fevers or chills. HEENT: No headaches or visual changes. CARDIOPULMONARY: No chest pain or shortness of breath. GASTROINTESTINAL: Positive for emesis of bright red blood. No melena or bright red blood per rectum. GENITOURINARY: No urgency or frequency. MUSCULOSKELETAL: No joint pain or swelling. NEUROLOGIC: No evidence of seizures. PHYSICAL EXAMINATION: VITAL SIGNS: Temperature 98, pulse 100, respiratory rate 27, blood pressure 123/78. GENERAL: The patient is well developed, no apparent distress. HEART: Regular rate and rhythm. LUNGS: Clear. ABDOMEN: Soft, nontender, and nondistended. EXTREMITIES: Without clubbing, cyanosis, or edema. LABORATORY DATA: Showed sodium 128, potassium 3.0, chloride of 83, bicarb 29, BUN of 108, creatinine was 5.5. White count [place] [address], hemoglobin 12, hematocrit 35, platelet count of 382. Coags are essentially normal. ASSESSMENT: This is a 62-year-old male with a prior history of peptic ulcer disease, questionable cirrhosis admitted with complaints of GI bleed. 1. GI bleed. 2. Acute renal failure. 3. Questionable history of cirrhosis. 4. History of psoriasis. 5. History of hip surgery. PLAN: 1. Continue IV Protonix drip. 2. Continue octreotide drip. 3. Monitor serial CBCs. 4. GI consultation for endoscopy. 5. Renal consultation for the patient's renal failure. 6. We will continue hydration. 7. Place a Stoner catheter. 8. Avoid nephrotoxic toxic agents and medications. Tony Tenorio M.D. DR: Carla JOB#: [id number] CC:
--- NOTE | 2018-02-11 19:00 | Procedure Note ---
DATE OF PROCEDURE: 02/11/2018 SURGEON: David Hernandez M.D. ANESTHESIOLOGIST: Dr. Abraham. REFERRING PHYSICIAN: Tony Tenorio M.D. PROCEDURE: Upper endoscopy with biopsy. ANESTHESIA: Per Dr. Abraham. INSTRUMENT: Olympus adult flexible upper endoscope. INDICATION: Upper GI bleeding. The procedure, risks, benefits, and possible consequences, including hemorrhage, aspiration, perforation and infection, and alternative treatments, were explained to the patient/legal guardian by Dr. David Hernandez and the patient/legal guardian understood and accepted these risks. DESCRIPTION OF PROCEDURE: After informed consent was obtained and the patient was adequately sedated, Olympus upper endoscope was advanced from the mouth into the second portion of duodenum and retroflexion was performed in the stomach. The patient had evidence of severe esophagitis with oozing blood from the distal esophagus. Multiple biopsies from distal esophagus were obtained. The patient also had evidence of 5-cm hiatal hernia. In the stomach, there was diffuse gastritis. There were some blood products in the stomach making examination of the stomach difficult. There was one ulcer in the prepyloric region and one ulcer in the duodenum, none of them were actively bleeding. No visible vessel. No adherent clot. I think most probably the bleeding was from the esophagus. At this time, biopsy of the antrum was obtained to rule out H. pylori infection and procedure was terminated. SUMMARY OF FINDINGS: 1. A 5-cm hiatal hernia. 2. Severe distal esophagitis and ulcerations, questionable infectious versus acid reflux related given hiatal hernia. Follow biopsy results. 3. Gastritis, status post biopsy. 4. Prepyloric ulcer and also duodenal ulcer. RECOMMENDATIONS: Follow up biopsy results and treat accordingly. Keep the patient n.p.o. tonight and start diet tomorrow if stable. Monitor hemoglobin and hematocrit. Transfuse as needed to keep hemoglobin above 7. Continue on Protonix. Discontinue octreotide. Follow laboratories. I want to thank Dr. Tenorio for this kind referral. David Hernandez M.D. DR: Stan JOB#: [id number] CC: Tony Tenorio M.D.
[2018-02-11 19:18] LABS: HEMATOCRIT 25.6 % (42.0-52.0); HEMOGLOBIN 8.7 G/DL (14.2-18.0); MEAN CORPUSCULAR VOLUME 100 FL (80-99); PLATELET COUNT 287 K/UL (150-450); RED BLOOD COUNT 2.56 M/UL (4.70-6.10); RED CELL DISTRIBUTION WIDTH 13.5 % (11.6-14.8); WHITE BLOOD COUNT 21.8 K/UL (4.8-10.8)
[2018-02-11] MEDS: Morphine Sulfate 2mg/ml Inj IVP PRN (22:03)
--- NOTE | 2018-02-11 22:15 | Consultation ---
DATE OF CONSULTATION: 02/11/2018 NEPHROLOGY CONSULTATION CONSULTING PHYSICIAN: Kanu Gudino M.D. REFERRING PHYSICIAN: Tony Tenorio M.D. REASON FOR CONSULTATION: Elevated BUN and creatinine. HISTORY OF PRESENT ILLNESS: The patient is a 62-year-old man who comes in with GI bleed. He has been eating and drinking very little in the last several days and he is presenting with azotemia as well. There is apparently a prior history of esophageal varices and GI bleeding. The patient is not known to have renal failure before. He has had history of osteoarthritis, bilateral hip surgeries, and psoriasis. He had a prior exploratory laparotomy with control of bleeding from the stomach in 2014 at this hospital. He has had no known renal failure, but he has been eating and drinking poorly and has decreased urine output and sensation of thirst and dehydration. ALLERGIES: None known. SURGERIES: Include exploratory laparotomy as above, bilateral hip surgery. HABITS: He is a nonsmoker. He had been a [id number] alcohol drinker in the past, quit 3 years ago. HOME MEDICATIONS: Tylenol. FAMILY HISTORY: Father had diabetes. SYSTEM REVIEW: HEAD, EYES, EARS, NOSE, THROAT: Vision and hearing is good. ENDOCRINE: No known diabetes or thyroid disease. PULMONARY: No asthma, TB, chronic cough. CARDIAC: No angina, PR, or palpitations. GASTROINTESTINAL: See above. GENITOURINARY: Denies urinary hesitancy or decreased voiding. He has nocturia x2. NEUROLOGIC: No CVA or seizures. MUSCULOSKELETAL: History of hip surgeries and osteoarthritis. PHYSICAL EXAMINATION: GENERAL: The patient is lying in bed, in no acute distress. VITAL SIGNS: Temperature 98.1, pulse 99, respirations 20, and blood pressure 141/69. HEAD, EYES, EARS, NOSE, THROAT: Oral mucosa is dry. Sclerae nonicteric. NECK: No adenopathy. LUNGS: Clear. HEART: Regular rhythm. I hear no murmur. ABDOMEN: Soft. No organomegaly or masses. EXTREMITIES: No edema, cyanosis, or clubbing. NEUROLOGIC: He is alert and oriented. Cranial nerves are intact. PERTINENT LABORATORY DATA: Show white count of 20.7, hemoglobin 9. Sodium 133, potassium 3.2, chloride 95, CO2 27, BUN 108, and creatinine 5. Albumin is 1.4. BUN 108 and creatinine 5.5 on the 9th. The drug screen is positive for marijuana. HIV is negative. Urinalysis shows 40-60 white cells and too numerous to count red cells per high-power field. Urine sodium 21, urine creatinine 107, urine osmolality 378. IMPRESSION: 1. Acute kidney injury, likely secondary to dehydration. 2. Upper GI bleeding. 3. Low serum albumin. 4. Likely cirrhosis. 5. Some urinary retention with no hydronephrosis. A Stoner was placed. 6. Nephrolithiasis, nonobstructing, seen on ultrasound. PLAN: The patient needs vigorous hydration. Watch closely in view of his comorbidities, being evaluated for GI bleeding. Likely, he will develop edema and possibly ascites when he has been rehydrated. Kanu Gudino M.D. DR: Marlon JOB#: [id number] CC:
[2018-02-12] VITALS: BP 132/64
[2018-02-12 04:00] VITALS: BP 153/82
[2018-02-12] MEDS: Pantoprazole 80 MG in NS 250 ML IV SCH ×2 (04:05→14:06)
[2018-02-12 05:13] LABS: HEMOGLOBIN 8.4 G/DL (14.2-18.0); MEAN CORPUSCULAR VOLUME 101 FL (80-99); PLATELET COUNT 285 K/UL (150-450); RED BLOOD COUNT 2.48 M/UL (4.70-6.10); RED CELL DISTRIBUTION WIDTH 13.6 % (11.6-14.8); WHITE BLOOD COUNT 21.2 K/UL (4.8-10.8)
[2018-02-12 05:49] LABS: ALANINE AMINOTRANSFERASE 7 U/L (12-78); ALBUMIN 1.4 G/DL (3.4-5.0); ALBUMIN/GLOBULIN RATIO 0.3 (1.0-2.7); ALKALINE PHOSPHATASE 159 U/L (46-116); ANION GAP 13 mmol/L (5-15); ASPARTATE AMINO TRANSFERASE 35 U/L (15-37); BILIRUBIN,TOTAL 1.3 MG/DL (0.2-1.0); BLOOD UREA NITROGEN 104 mg/dL (7-18); CALCIUM 7.5 MG/DL (8.5-10.1); CARBON DIOXIDE 23 MMOL/L (21-32); CHLORIDE 102 MMOL/L (98-107); CREATININE 4.3 MG/DL (0.55-1.30); POTASSIUM 3.4 MMOL/L (3.5-5.1); SODIUM 138 MMOL/L (136-145)
[2018-02-12] MEDS ORDERED: Vancomycin 750mg/NS 250ml IVPB ONE ×2 (07:00→08:30)
[2018-02-12 08:00] VITALS: BP 148/85
--- NOTE | 2018-02-12 11:21 | GI Progress Note ---
Assessment/Plan Problems: (1) Upper GI bleed ICD Codes: K92.2 - Gastrointestinal hemorrhage, unspecified SNOMED: 15474805 (2) Esophageal ulcer ICD Codes: K22.10 - Esophageal ulcer SNOMED: 46644951 (3) Esophagitis ICD Codes: K20.9 - Esophagitis SNOMED: 51784738 (4) Upper GI bleed ICD Codes: K92.2 - Gastrointestinal hemorrhage, unspecified SNOMED: 41071543 Status: stable Status Narrative Discussed with Dr. Hernandez. Assessment/Plan SUMMARY OF FINDINGS: 1. A 5-cm hiatal hernia. 2. Severe distal esophagitis and ulcerations, questionable infectious versus acid reflux related given hiatal hernia. Follow biopsy results. 3. Gastritis, status post biopsy. 4. Prepyloric ulcer and also duodenal ulcer. RECOMMENDATIONS: Follow up biopsy results and treat accordingly. adv diet as tolerated Monitor hemoglobin and hematocrit. Transfuse as needed to keep hemoglobin above 7. Continue on Protonix. dc planning outpatient follow up The patient was seen and examined at bedside and all new and available data was reviewed in the patients chart. I agree with the above findings, impression and plan. (Patient seen earlier today. Signature stamp does not reflect patient encounter time.). - David Hernandez MD Subjective Subjective tolerating diet Objective Last 24 Hour Vital Signs Date Time Temp Pulse Resp B/P (MAP) Pulse Ox O2 Delivery O2 Flow Rate FiO2 02/12/18 08:00 Room Air 02/12/18 08:00 94 02/12/18 08:00 98.6 94 20 148/85 95 Room Air 02/12/18 04:00 Room Air 02/12/18 04:00 98.2 93 24 153/82 96 Room Air 02/12/18 04:00 98 02/12/18 00:00 98.8 98 20 132/64 98 Room Air 02/12/18 00:00 Room Air 02/12/18 00:00 98 02/11/18 22:31 98.9 02/11/18 20:00 96 02/11/18 20:00 Room Air 02/11/18 20:00 99.0 93 21 138/71 98 Room Air 02/11/18 16:00 98.1 99 20 141/69 94 Room Air 02/11/18 16:00 101 02/11/18 16:00 Room Air 02/11/18 15:53 92 18 99 02/11/18 15:51 100 18 99 02/11/18 15:00 101 26 133/61 93 Room Air 02/11/18 14:00 99 27 127/67 94 Room Air 02/11/18 13:42 97.3 92 20 113/78 98 Room Air 02/11/18 12:05 Room Air 02/11/18 12:00 102 02/11/18 12:00 97.6 101 27 140/67 95 Room Air Intake and Output 02/11/18 02/12/18 19:00 07:00 Intake Total 1817.6 ml 2785 ml Output Total 570 ml 700 ml Balance 1247.6 ml 2085 ml Intake IV Total 1817.6 ml 2785 ml Output Urine Total 570 ml 700 ml Laboratory Tests Test 02/11/18 11:30 02/11/18 18:55 02/12/18 03:00 HIV (1&2) Antibody Rapid Negative (NEGATIVE) White Blood Count 21.8 K/UL (4.8-10.8) H 21.2 K/UL (4.8-10.8) H Red Blood Count 2.56 M/UL (4.70-6.10) L 2.48 M/UL (4.70-6.10) L Hemoglobin 8.7 G/DL (14.2-18.0) L 8.4 G/DL (14.2-18.0) L Hematocrit 25.6 % (42.0-52.0) L 25.0 % (42.0-52.0) L Mean Corpuscular Volume 100 FL (80-99) H 101 FL (80-99) H Mean Corpuscular Hemoglobin 33.8 PG (27.0-31.0) H 33.7 PG (27.0-31.0) H Mean Corpuscular Hemoglobin Concent 33.8 G/DL (32.0-36.0) 33.4 G/DL (32.0-36.0) Red Cell Distribution Width 13.5 % (11.6-14.8) 13.6 % (11.6-14.8) Platelet Count 287 K/UL (150-450) 285 K/UL (150-450) Mean Platelet Volume 7.5 FL (6.5-10.1) 7.4 FL (6.5-10.1) Neutrophils (%) (Auto) % (45.0-75.0) % (45.0-75.0) Lymphocytes (%) (Auto) % (20.0-45.0) % (20.0-45.0) Monocytes (%) (Auto) % (1.0-10.0) % (1.0-10.0) Eosinophils (%) (Auto) % (0.0-3.0) % (0.0-3.0) Basophils (%) (Auto) % (0.0-2.0) % (0.0-2.0) Differential Total Cells Counted 100 100 Neutrophils % (Manual) 79 % (45-75) H 83 % (45-75) H Lymphocytes % (Manual) 12 % (20-45) L 7 % (20-45) L Monocytes % (Manual) 9 % (1-10) 10 % (1-10) Eosinophils % (Manual) 0 % (0-3) 0 % (0-3) Basophils % (Manual) 0 % (0-2) 0 % (0-2) Band Neutrophils 0 % (0-8) 0 % (0-8) Platelet Estimate Adequate Adequate Platelet Morphology Normal Normal Hypochromasia 2+ 1+ Anisocytosis 1+ Macrocytosis 1+ 1+ Sodium Level 138 MMOL/L (136-145) Potassium Level 3.4 MMOL/L (3.5-5.1) L Chloride Level 102 MMOL/L (98-107) Carbon Dioxide Level 23 MMOL/L (21-32) Anion Gap 13 mmol/L (5-15) Blood Urea Nitrogen 104 mg/dL (7-18) H Creatinine 4.3 MG/DL (0.55-1.30) H Estimat Glomerular Filtration Rate 14.0 mL/min (>60) Glucose Level 82 MG/DL (74-106) Calcium Level 7.5 MG/DL (8.5-10.1) L Total Bilirubin 1.3 MG/DL (0.2-1.0) H Direct Bilirubin 1.0 MG/DL (0.0-0.3) H Aspartate Amino Transf (AST/SGOT) 35 U/L (15-37) Alanine Aminotransferase (ALT/SGPT) 7 U/L (12-78) L Alkaline Phosphatase 159 U/L (46-116) H Total Protein 6.0 G/DL (6.4-8.2) L Albumin 1.4 G/DL (3.4-5.0) L Globulin 4.6 g/dL Albumin/Globulin Ratio 0.3 (1.0-2.7) L Random Vancomycin Level 8.0 ug/mL Helicobacter pylori IgG Antibody Pending Height (Feet): 5 Height (Inches): 10.00 Weight (Pounds): 117 General Appearance: WD/WN, no apparent distress, alert Cardiovascular: normal rate Respiratory/Chest: normal breath sounds, no respiratory distress Abdominal Exam: normal bowel sounds, non tender, soft Extremities: non-tender Bhavin Judge NP Feb 12, 2018 11:21
[2018-02-12 12:00] VITALS: BP 158/97
[2018-02-12] MEDS: Ceftaroline 200 MG in NS 55 ML IV SCH ×2 (14:05→20:29)
[2018-02-12 16:00] VITALS: BP 148/93
--- NOTE | 2018-02-12 17:32 | Nephrology Progress Note ---
Assessment/Plan Problem List: (1) Malnutrition of moderate degree (2) BANDAR (acute kidney injury) (3) Upper GI bleed (4) Acute blood loss anemia Plan continue iv hydration, trend lab, expect edema as very low alb Subjective Constitutional: Reports: weakness HEENT: Reports: no symptoms Genitourinary: Reports: no symptoms Neurologic/Psychiatric: Reports: pre-existing deficit Objective Objective Last 24 Hour Vital Signs Date Time Temp Pulse Resp B/P (MAP) Pulse Ox O2 Delivery O2 Flow Rate FiO2 02/12/18 16:00 96 02/12/18 16:00 Room Air 02/12/18 16:00 98.5 98 20 148/93 96 Room Air 02/12/18 12:00 Room Air 02/12/18 12:00 103 02/12/18 12:00 97.9 96 20 158/97 96 Room Air 02/12/18 08:00 Room Air 02/12/18 08:00 94 02/12/18 08:00 98.6 94 20 148/85 95 Room Air 02/12/18 04:00 Room Air 02/12/18 04:00 98.2 93 24 153/82 96 Room Air 02/12/18 04:00 98 02/12/18 00:00 98.8 98 20 132/64 98 Room Air 02/12/18 00:00 Room Air 02/12/18 00:00 98 02/11/18 22:31 98.9 02/11/18 20:00 96 02/11/18 20:00 Room Air 02/11/18 20:00 99.0 93 21 138/71 98 Room Air Intake and Output 02/11/18 02/12/18 19:00 07:00 Intake Total 1817.6 ml 2785 ml Output Total 570 ml 700 ml Balance 1247.6 ml 2085 ml IV Total 1817.6 ml 2785 ml Output Urine Total 570 ml 700 ml Laboratory Tests 02/11/18 18:55: White Blood Count 21.8H, Red Blood Count 2.56L, Hemoglobin 8.7L, Hematocrit 25.6L, Mean Corpuscular Volume 100H, Mean Corpuscular Hemoglobin 33.8H, Mean Corpuscular Hemoglobin Concent 33.8, Red Cell Distribution Width 13.5, Platelet Count 287, Mean Platelet Volume 7.5, Neutrophils (%) (Auto) , Lymphocytes (%) ( Auto) , Monocytes (%) (Auto) , Eosinophils (%) (Auto) , Basophils (%) (Auto) , Differential Total Cells Counted 100, Neutrophils % (Manual) 79H, Lymphocytes % (Manual) 12L, Monocytes % (Manual) 9, Eosinophils % (Manual) 0, Basophils % ( Manual) 0, Band Neutrophils 0, Platelet Estimate Adequate, Platelet Morphology Normal, Hypochromasia 2+, Anisocytosis 1+, Macrocytosis 1+ 02/12/18 03:00: White Blood Count 21.2H, Red Blood Count 2.48L, Hemoglobin 8.4L, Hematocrit 25.0L, Mean Corpuscular Volume 101H, Mean Corpuscular Hemoglobin 33.7H, Mean Corpuscular Hemoglobin Concent 33.4, Red Cell Distribution Width 13.6, Platelet Count 285, Mean Platelet Volume 7.4, Neutrophils (%) (Auto) , Lymphocytes (%) ( Auto) , Monocytes (%) (Auto) , Eosinophils (%) (Auto) , Basophils (%) (Auto) , Differential Total Cells Counted 100, Neutrophils % (Manual) 83H, Lymphocytes % (Manual) 7L, Monocytes % (Manual) 10, Eosinophils % (Manual) 0, Basophils % ( Manual) 0, Band Neutrophils 0, Platelet Estimate Adequate, Platelet Morphology Normal, Hypochromasia 1+, Macrocytosis 1+, Sodium Level 138, Potassium Level 3.4L, Chloride Level 102, Carbon Dioxide Level 23, Anion Gap 13, Blood Urea Nitrogen 104H, Creatinine 4.3H, Estimat Glomerular Filtration Rate 14.0, Glucose Level 82, Calcium Level 7.5L, Total Bilirubin 1.3H, Direct Bilirubin 1.0H, Aspartate Amino Transf (AST/SGOT) 35, Alanine Aminotransferase (ALT/SGPT) 7L, Alkaline Phosphatase 159H, Total Protein 6.0L, Albumin 1.4L, Globulin 4.6, Albumin/Globulin Ratio 0.3L, Random Vancomycin Level 8.0, Helicobacter pylori IgG Antibody [Pending] Height (Feet): 5 Height (Inches): 10.00 Weight (Pounds): 117 General Appearance: no apparent distress, alert EENT: normal ENT inspection Neck: normal alignment Cardiovascular: normal rate, regular rhythm Respiratory/Chest: lungs clear Abdomen: non tender, soft Extremities: trace edema Neurologic: no motor/sensory deficits Kanu Gudino MD Feb 12, 2018 17:32
--- NOTE | 2018-02-12 17:41 | General Progress Note ---
Assessment/Plan Problem List: (1) Discitis ICD Codes: M46.40 - Discitis, unspecified, site unspecified SNOMED: 9014996 (2) Hypovolemic shock ICD Codes: R57.1 - Hypovolemic shock SNOMED: 55144255 (3) Gastritis ICD Codes: K29.70 - Gastritis SNOMED: 7130277 (4) Hypotension ICD Codes: I95.9 - Hypotension, unspecified SNOMED: 39888271 (5) Upper GI bleed ICD Codes: K92.2 - Gastrointestinal hemorrhage, unspecified SNOMED: 88257994 (6) Leukocytosis ICD Codes: D72.829 - Elevated white blood cell count, unspecified SNOMED: 792703355, 986538307 (7) BANDAR (acute kidney injury) ICD Codes: N17.9 - Acute kidney failure, unspecified SNOMED: 51548213 Status: stable Assessment/Plan iv abx follow up cultures ivf monitor renal fxn ppi po transfer for higher level of care for spine eval Subjective ROS Limited/Unobtainable: No HEENT: Reports: no symptoms Cardiovascular: Reports: no symptoms Respiratory: Reports: no symptoms Gastrointestinal/Abdominal: Reports: no symptoms Genitourinary: Reports: no symptoms Neurologic/Psychiatric: Reports: no symptoms Endocrine: Reports: no symptoms Hematologic/Lymphatic: Reports: no symptoms Allergies: Coded Allergies: ASPIRIN (Verified Allergy, Mild, 10/20/14) All Systems: reviewed and negative except above Subjective no bleeding. egd with esophagitis. +blood cultures. cr improving Objective Last 24 Hour Vital Signs Date Time Temp Pulse Resp B/P (MAP) Pulse Ox O2 Delivery O2 Flow Rate FiO2 02/12/18 16:00 96 02/12/18 16:00 Room Air 02/12/18 16:00 98.5 98 20 148/93 96 Room Air 02/12/18 12:00 Room Air 02/12/18 12:00 103 02/12/18 12:00 97.9 96 20 158/97 96 Room Air 02/12/18 08:00 Room Air 02/12/18 08:00 94 02/12/18 08:00 98.6 94 20 148/85 95 Room Air 02/12/18 04:00 Room Air 02/12/18 04:00 98.2 93 24 153/82 96 Room Air 02/12/18 04:00 98 02/12/18 00:00 98.8 98 20 132/64 98 Room Air 02/12/18 00:00 Room Air 02/12/18 00:00 98 02/11/18 22:31 98.9 02/11/18 20:00 96 02/11/18 20:00 Room Air 02/11/18 20:00 99.0 93 21 138/71 98 Room Air Intake and Output 02/11/18 02/12/18 19:00 07:00 Intake Total 1817.6 ml 2785 ml Output Total 570 ml 700 ml Balance 1247.6 ml 2085 ml IV Total 1817.6 ml 2785 ml Output Urine Total 570 ml 700 ml Laboratory Tests 02/11/18 18:55: White Blood Count 21.8H, Red Blood Count 2.56L, Hemoglobin 8.7L, Hematocrit 25.6L, Mean Corpuscular Volume 100H, Mean Corpuscular Hemoglobin 33.8H, Mean Corpuscular Hemoglobin Concent 33.8, Red Cell Distribution Width 13.5, Platelet Count 287, Mean Platelet Volume 7.5, Neutrophils (%) (Auto) , Lymphocytes (%) ( Auto) , Monocytes (%) (Auto) , Eosinophils (%) (Auto) , Basophils (%) (Auto) , Differential Total Cells Counted 100, Neutrophils % (Manual) 79H, Lymphocytes % (Manual) 12L, Monocytes % (Manual) 9, Eosinophils % (Manual) 0, Basophils % ( Manual) 0, Band Neutrophils 0, Platelet Estimate Adequate, Platelet Morphology Normal, Hypochromasia 2+, Anisocytosis 1+, Macrocytosis 1+ 02/12/18 03:00: White Blood Count 21.2H, Red Blood Count 2.48L, Hemoglobin 8.4L, Hematocrit 25.0L, Mean Corpuscular Volume 101H, Mean Corpuscular Hemoglobin 33.7H, Mean Corpuscular Hemoglobin Concent 33.4, Red Cell Distribution Width 13.6, Platelet Count 285, Mean Platelet Volume 7.4, Neutrophils (%) (Auto) , Lymphocytes (%) ( Auto) , Monocytes (%) (Auto) , Eosinophils (%) (Auto) , Basophils (%) (Auto) , Differential Total Cells Counted 100, Neutrophils % (Manual) 83H, Lymphocytes % (Manual) 7L, Monocytes % (Manual) 10, Eosinophils % (Manual) 0, Basophils % ( Manual) 0, Band Neutrophils 0, Platelet Estimate Adequate, Platelet Morphology Normal, Hypochromasia 1+, Macrocytosis 1+, Sodium Level 138, Potassium Level 3.4L, Chloride Level 102, Carbon Dioxide Level 23, Anion Gap 13, Blood Urea Nitrogen 104H, Creatinine 4.3H, Estimat Glomerular Filtration Rate 14.0, Glucose Level 82, Calcium Level 7.5L, Total Bilirubin 1.3H, Direct Bilirubin 1.0H, Aspartate Amino Transf (AST/SGOT) 35, Alanine Aminotransferase (ALT/SGPT) 7L, Alkaline Phosphatase 159H, Total Protein 6.0L, Albumin 1.4L, Globulin 4.6, Albumin/Globulin Ratio 0.3L, Random Vancomycin Level 8.0, Helicobacter pylori IgG Antibody [Pending] Height (Feet): 5 Height (Inches): 10.00 Weight (Pounds): 117 General Appearance: WD/WN Neck: supple Cardiovascular: normal rate Respiratory/Chest: chest wall non-tender, lungs clear, normal breath sounds Abdomen: normal bowel sounds, non tender, soft, no organomegaly Edema: no edema noted Arm (L), no edema noted Arm (R), no edema noted Leg (L), no edema noted Leg (R), no edema noted Pedal (L), no edema noted Pedal (R), no edema noted Generalized Tony Tenorio MD Feb 12, 2018 17:41
[2018-02-12 20:00] VITALS: BP 146/84
[2018-02-12] MEDS: Morphine Sulfate 2mg/ml Inj IVP PRN (20:08)
--- NOTE | 2018-02-12 20:45 | Consultation ---
DATE OF CONSULTATION: 02/12/2018 INFECTIOUS DISEASE CONSULTATION CONSULTING PHYSICIAN: Summer Doshi M.D. REFERRING PHYSICIAN: Tony Tenorio M.D. REASON FOR CONSULTATION: Diskitis. HISTORY OF PRESENT ILLNESS: This is a 62-year-old gentleman with history of esophageal varices, GI bleeding, and history of hip replacement surgery, who came in vomiting blood. He does have a history of peptic ulcer disease. He was also found to have a diskitis and an Infectious Diseases consultation has been obtained for antibiotics. PAST MEDICAL HISTORY: 1. History of GI bleeding. 2. Esophageal varices. 3. History of hip replacement surgery. MEDICATIONS: As an inpatient, he is on Zosyn, potassium, pantoprazole, Dulcolax, morphine, vancomycin, and Zofran. ALLERGIES: He is allergic to aspirin. SOCIAL HISTORY: He used to smoke, he does not smoke anymore. He used to drink alcohol. He quit drinking two years ago. No history of drug use. FAMILY HISTORY: Positive for stroke in his father. REVIEW OF SYSTEMS: RESPIRATORY: No fever or chills. No cough. No shortness of breath or chest pain. CARDIAC: No chest pain. No palpitations. No dizziness. No syncope. GASTROINTESTINAL: He did have vomiting with blood, which has resolved. No abdominal pain or diarrhea. PHYSICAL EXAMINATION: VITAL SIGNS: Temperature of 98.6, T-max of 99, pulse 94, respiratory rate 20, and blood pressure 144/85. O2 saturation of 95%. HEENT: Pupils are equally reactive to light and accommodation. Mouth appears clean without thrush. NECK: Supple. No adenopathy. No JVD. CARDIOVASCULAR: Regular rate and rhythm. No murmurs. LUNGS: Clear to auscultation bilaterally. No crackles. No wheezes. ABDOMEN: Soft and nontender. No organomegaly. EXTREMITIES: No cyanosis. No clubbing. No edema. LABORATORY AND DIAGNOSTIC DATA: White count 21.2, hemoglobin 8.4, hematocrit 25, MCV 101, platelet count 285,000 and neutrophils of 83%. Sodium 138, potassium 3.4, chloride 102, bicarb 23, BUN 104, and creatinine 4.3. Glucose 82. Calcium 7.5. Total bilirubin 1.3, direct bilirubin 1. AST 35, ALT 7, and alkaline phosphatase 159. Total protein 6. Albumin 1.4. UA showing 40 to 60 white cells. HIV is negative. Blood culture is growing Staph aureus, susceptibility is pending. Renal ultrasound showing no obstructive nephropathy. Small nonobstructive stone of the left kidney noted. Fatty liver noted. CT abdomen and pelvis showing thickening of the distal wall of the esophagus. Cholelithiasis noted, nonobstructive stone in the right kidney noted. Normal appendix. Bilateral hip prosthesis noted. Chest x-ray showing no acute disease. ASSESSMENT: This is a 62-year-old gentleman with history of esophageal varices, who comes in with gastrointestinal bleeding and is found to have, 1. Staphylococcus aureus sepsis. 2. Renal failure. 3. Renal stone, which is nonobstructing. 4. Leukocytosis. 5. We would like to rule out endocarditis as a possibility. PLAN: 1. Discontinue IV vancomycin and Zosyn. 2. We will start the patient on ceftaroline. 3. We will order a 2-D echocardiogram. 4. We will follow up cultures. I would like to thank, Dr. Tenorio, for this consultation. Summer Doshi M.D. DR: CATHY JOB#: [id number] CC:
[2018-02-12] MEDS ORDERED: Pantoprazole Inj ONE (23:37)
[2018-02-13] VITALS: BP 145/91
[2018-02-13 04:00] VITALS: BP 155/91
[2018-02-13 05:11] LABS: HEMATOCRIT 27.2 % (42.0-52.0); MEAN CORPUSCULAR VOLUME 103 FL (80-99); PLATELET COUNT 293 K/UL (150-450); RED BLOOD COUNT 2.65 M/UL (4.70-6.10); RED CELL DISTRIBUTION WIDTH 13.7 % (11.6-14.8)
[2018-02-13 05:49] LABS: ANION GAP 14 mmol/L (5-15); BLOOD UREA NITROGEN 86 mg/dL (7-18); CALCIUM 7.7 MG/DL (8.5-10.1); CARBON DIOXIDE 18 MMOL/L (21-32); CHLORIDE 100 MMOL/L (98-107); CREATININE 3.2 MG/DL (0.55-1.30); POTASSIUM 4.2 MMOL/L (3.5-5.1); SODIUM 132 MMOL/L (136-145)
[2018-02-13 08:14] VITALS: BP 147/93
[2018-02-13] MEDS: Ceftaroline 200 MG in NS 55 ML IV SCH (09:25)
--- NOTE | 2018-02-13 10:32 | GI Progress Note ---
Assessment/Plan Problems: (1) Upper GI bleed ICD Codes: K92.2 - Gastrointestinal hemorrhage, unspecified SNOMED: 71904292 (2) Esophageal ulcer ICD Codes: K22.10 - Esophageal ulcer SNOMED: 18236480 (3) Esophagitis ICD Codes: K20.9 - Esophagitis SNOMED: 85404990 (4) Upper GI bleed ICD Codes: K92.2 - Gastrointestinal hemorrhage, unspecified SNOMED: 28448206 Status: stable Status Narrative Discussed with Dr. Hernandez. Assessment/Plan SUMMARY OF FINDINGS: 1. A 5-cm hiatal hernia. 2. Severe distal esophagitis and ulcerations, questionable infectious versus acid reflux related given hiatal hernia. Follow biopsy results. 3. Gastritis, status post biopsy. 4. Prepyloric ulcer and also duodenal ulcer. RECOMMENDATIONS: Follow up biopsy results and treat accordingly. adv diet as tolerated Monitor hemoglobin and hematocrit. Transfuse as needed to keep hemoglobin above 7. Continue on Protonix. abx fu labs outpatient follow up The patient was seen and examined at bedside and all new and available data was reviewed in the patients chart. I agree with the above findings, impression and plan. (Patient seen earlier today. Signature stamp does not reflect patient encounter time.). - David Hernandez MD Subjective Subjective tolerating diet Objective Last 24 Hour Vital Signs Date Time Temp Pulse Resp B/P (MAP) Pulse Ox O2 Delivery O2 Flow Rate FiO2 02/13/18 08:14 97.7 103 20 147/93 100 Room Air 02/13/18 08:09 102 02/13/18 08:00 Room Air 02/13/18 04:00 Room Air 02/13/18 04:00 98.3 100 20 155/91 97 Room Air 02/13/18 03:43 101 02/13/18 00:00 Room Air 02/13/18 00:00 98.5 102 24 145/91 96 Room Air 02/12/18 23:24 108 02/12/18 20:00 98.1 101 20 146/84 100 Room Air 02/12/18 20:00 Room Air 02/12/18 19:06 105 02/12/18 16:00 96 02/12/18 16:00 Room Air 02/12/18 16:00 98.5 98 20 148/93 96 Room Air 12/12/18 12:00 Room Air 02/12/18 12:00 103 02/12/18 12:00 97.9 96 20 158/97 96 Room Air Intake and Output 02/12/18 02/13/18 19:00 07:00 Intake Total 2780 ml 3001.47 ml Output Total 700 ml 750 ml Balance 2080 ml 2251.47 ml Intake Oral 650 ml 500 ml IV Total 2130 ml 2501.47 ml Output Urine Total 700 ml 750 ml Laboratory Tests Test 02/13/18 03:00 White Blood Count 24.0 K/UL (4.8-10.8) *H Red Blood Count 2.65 M/UL (4.70-6.10) L Hemoglobin 9.0 G/DL (14.2-18.0) L Hematocrit 27.2 % (42.0-52.0) L Mean Corpuscular Volume 103 FL (80-99) H Mean Corpuscular Hemoglobin 34.1 PG (27.0-31.0) H Mean Corpuscular Hemoglobin Concent 33.2 G/DL (32.0-36.0) Red Cell Distribution Width 13.7 % (11.6-14.8) Platelet Count 293 K/UL (150-450) Mean Platelet Volume 7.6 FL (6.5-10.1) Neutrophils (%) (Auto) % (45.0-75.0) Lymphocytes (%) (Auto) % (20.0-45.0) Monocytes (%) (Auto) % (1.0-10.0) Eosinophils (%) (Auto) % (0.0-3.0) Basophils (%) (Auto) % (0.0-2.0) Differential Total Cells Counted 100 Neutrophils % (Manual) 84 % (45-75) H Lymphocytes % (Manual) 8 % (20-45) L Monocytes % (Manual) 8 % (1-10) Eosinophils % (Manual) 0 % (0-3) Basophils % (Manual) 0 % (0-2) Band Neutrophils 0 % (0-8) Platelet Estimate Adequate Platelet Morphology Normal Hypochromasia 1+ Macrocytosis 1+ Sodium Level 132 MMOL/L (136-145) L Potassium Level 4.2 MMOL/L (3.5-5.1) Chloride Level 100 MMOL/L (98-107) Carbon Dioxide Level 18 MMOL/L (21-32) L Anion Gap 14 mmol/L (5-15) Blood Urea Nitrogen 86 mg/dL (7-18) H Creatinine 3.2 MG/DL (0.55-1.30) H Estimat Glomerular Filtration Rate 19.7 mL/min (>60) Glucose Level 83 MG/DL (74-106) Calcium Level 7.7 MG/DL (8.5-10.1) L Height (Feet): 5 Height (Inches): 10.00 Weight (Pounds): 117 General Appearance: WD/WN, no apparent distress, alert Cardiovascular: normal rate Respiratory/Chest: normal breath sounds, no respiratory distress Abdominal Exam: normal bowel sounds, non tender, soft Extremities: non-tender Bhavin Judge NP Feb 13, 2018 10:32
[2018-02-13] MEDS: Pantoprazole 80 MG in NS 250 ML IV SCH ×4 (10:35→20:26)
[2018-02-13 12:00] VITALS: BP 142/94
--- NOTE | 2018-02-13 13:20 | Infectious Diseases Prog Note ---
Assessment/Plan Assessment/Plan A MSSA sepsis Acute renal failure Upper GI bleeding Esophagitis Anemia MRSA carrier P: Change Teflaro to Cefazolin will f/u echocardiogram repeat blood cultures Subjective ROS Limited/Unobtainable: No Constitutional: Reports: anorexia Respiratory: Reports: no symptoms Cardiovascular: Reports: no symptoms Gastrointestinal/Abdominal: Reports: no symptoms Genitourinary: Reports: no symptoms Allergies: Coded Allergies: ASPIRIN (Verified Allergy, Mild, 10/20/14) Objective Vital Signs Last 24 Hour Vital Signs Date Time Temp Pulse Resp B/P (MAP) Pulse Ox O2 Delivery O2 Flow Rate FiO2 02/13/18 12:00 97.5 106 20 142/94 97 Room Air 02/13/18 12:00 Room Air 02/13/18 11:36 107 02/13/18 08:14 97.7 103 20 147/93 100 Room Air 02/13/18 08:09 102 02/13/18 08:00 Room Air 02/13/18 04:00 Room Air 02/13/18 04:00 98.3 100 20 155/91 97 Room Air 02/13/18 03:43 101 02/13/18 00:00 Room Air 02/13/18 00:00 98.5 102 24 145/91 96 Room Air 02/12/18 23:24 108 02/12/18 20:00 98.1 101 20 146/84 100 Room Air 02/12/18 20:00 Room Air 02/12/18 19:06 105 02/12/18 16:00 96 02/12/18 16:00 Room Air 02/12/18 16:00 98.5 98 20 148/93 96 Room Air Height (Feet): 5 Height (Inches): 10.00 Weight (Pounds): 117 General Appearance: no acute distress HEENT: mucous membranes moist Respiratory/Chest: lungs clear Cardiovascular: tachycardia Abdomen: soft, non tender Extremities: no edema Neurologic/Psychiatric: alert, oriented x 3, responsive Microbiology Date/Time Source Procedure Growth Status 02/10/18 21:35 Blood Blood Culture - Final Staphylococcus Aureus Complete 02/10/18 21:20 Blood Blood Culture - Final Staphylococcus Aureus Complete 02/10/18 22:20 Nasal Aspirate MRSA Culture - Final Staphylococcus Aureus - Mrsa Complete 02/11/18 11:00 Urine,Clean Catch Urine Culture - Final Staphylococcus Aureus Complete 02/10/18 22:20 Rectum - Final NO CARBAPENEM-RESISTANT ENTEROBACTERI... Complete 02/10/18 22:20 Rectum VRE Culture - Final NO VANCOMYCIN RESISTANT ENTEROCOCCUS ... Complete Laboratory Tests Test 02/13/18 03:00 White Blood Count 24.0 K/UL (4.8-10.8) *H Red Blood Count 2.65 M/UL (4.70-6.10) L Hemoglobin 9.0 G/DL (14.2-18.0) L Hematocrit 27.2 % (42.0-52.0) L Mean Corpuscular Volume 103 FL (80-99) H Mean Corpuscular Hemoglobin 34.1 PG (27.0-31.0) H Mean Corpuscular Hemoglobin Concent 33.2 G/DL (32.0-36.0) Red Cell Distribution Width 13.7 % (11.6-14.8) Platelet Count 293 K/UL (150-450) Mean Platelet Volume 7.6 FL (6.5-10.1) Neutrophils (%) (Auto) % (45.0-75.0) Lymphocytes (%) (Auto) % (20.0-45.0) Monocytes (%) (Auto) % (1.0-10.0) Eosinophils (%) (Auto) % (0.0-3.0) Basophils (%) (Auto) % (0.0-2.0) Differential Total Cells Counted 100 Neutrophils % (Manual) 84 % (45-75) H Lymphocytes % (Manual) 8 % (20-45) L Monocytes % (Manual) 8 % (1-10) Eosinophils % (Manual) 0 % (0-3) Basophils % (Manual) 0 % (0-2) Band Neutrophils 0 % (0-8) Platelet Estimate Adequate Platelet Morphology Normal Hypochromasia 1+ Macrocytosis 1+ Sodium Level 132 MMOL/L (136-145) L Potassium Level 4.2 MMOL/L (3.5-5.1) Chloride Level 100 MMOL/L (98-107) Carbon Dioxide Level 18 MMOL/L (21-32) L Anion Gap 14 mmol/L (5-15) Blood Urea Nitrogen 86 mg/dL (7-18) H Creatinine 3.2 MG/DL (0.55-1.30) H Estimat Glomerular Filtration Rate 19.7 mL/min (>60) Glucose Level 83 MG/DL (74-106) Calcium Level 7.7 MG/DL (8.5-10.1) L Current Medications Medications (Trade) Dose Ordered Sig/Faheem Route PRN Reason Start Time Stop Time Status Last Admin Dose Admin Bisacodyl (Dulcolax) 10 mg DAILYPRN PRN RECTAL Constipation 02/11/18 16:30 03/13/18 16:29 Ceftaroline Fosamil 200 mg/ Sodium Chloride 55 ml @ 55 mls/hr EVERY 12 HOURS IV 02/12/18 13:00 02/19/18 12:59 02/13/18 09:25 Morphine Sulfate (Morphine Sulfate) 1 mg Q4H PRN IVP Severe Pain (Pain Scale 7-10) 02/11/18 16:30 02/18/18 16:29 02/12/18 20:08 Ondansetron HCl (Zofran) 4 mg Q6H PRN IVP Nausea & Vomiting 02/11/18 16:30 03/13/18 10:29 Pantoprazole 80 mg/Sodium Chloride 250 ml @ 25 mls/hr Q10H IV 02/11/18 18:26 03/13/18 18:25 02/13/18 10:35 Potassium Chloride 30 meq/ Sodium Chloride 1,015 ml @ 200 mls/hr Q5H5M IV 02/11/18 19:00 03/13/18 18:59 02/13/18 11:26 Javy Jiang MD Feb 13, 2018 13:20
--- NOTE | 2018-02-13 14:30 | Cardiology Report ---
APPROVED REPORT EXAM: Two-dimensional and M-mode echocardiogram with Doppler and color Doppler. INDICATION ENDOCARDITIS M-Mode DIMENSIONS IVSd0.9 (0.7-1.1cm)Left Atrium (MM)3.7 (1.6-4.0cm) LVDd6.9 (3.5-5.6cm)Aortic Root3.7 (2.0-3.7cm) PWd0.7 (0.7-1.1cm)Aortic Cusp Exc.2.1 (1.5-2.0cm) IVSs1.1 cm LVDs4.9 (2.5-4.0cm) PWs1.4 cm Normal left ventricular chamber size, systolic function and wall motion. Left ventricular ejection fraction estimated to be 55%. No evidence of left ventricular hypertrophy. Trivial pericardial effusion . All other cardiac chamber sizes are within normal limits. Focal aortic valve sclerosis with adequate cusp excursion. Thickened mitral valve leaflets with normal excursion. Mitral annulus and aortic root calcification. Pulmonic valve not well visualized. Normal tricuspid valve structure. IVC dilated at 2.2cm with physiologic collapse . A color flow and spectral Doppler study was performed and revealed: No aortic regurgitation. Mild mitral regurgitation. Mitral diastolic velocities suggest reduced left ventricular relaxation c/w mild LV diastolic dysfunction (Grade I ) Trace tricuspid regurgitation. Tricuspid systolic velocities suggests peak right ventricular systolic pressure of 60 mmHg,consistent with severe pulmonary hypertension .
[2018-02-13] MEDS ORDERED: ceFAZolin 1gm/50ml Premix 50 ML IV SCH (15:00)
[2018-02-13 16:00] VITALS: BP 144/93
--- NOTE | 2018-02-13 16:17 | General Progress Note ---
Assessment/Plan Problem List: (1) Discitis ICD Codes: M46.40 - Discitis, unspecified, site unspecified SNOMED: 4390441 (2) Hypovolemic shock ICD Codes: R57.1 - Hypovolemic shock SNOMED: 47073614 (3) Gastritis ICD Codes: K29.70 - Gastritis SNOMED: 4319063 (4) Hypotension ICD Codes: I95.9 - Hypotension, unspecified SNOMED: 83083963 (5) Upper GI bleed ICD Codes: K92.2 - Gastrointestinal hemorrhage, unspecified SNOMED: 31938203 (6) Leukocytosis ICD Codes: D72.829 - Elevated white blood cell count, unspecified SNOMED: 103910002, 572665495 (7) BANDAR (acute kidney injury) ICD Codes: N17.9 - Acute kidney failure, unspecified SNOMED: 51282839 Status: stable, progressing Assessment/Plan iv abx follow up cultures ivf monitor renal fxn ppi po transfer for higher level of care for spine eval Subjective ROS Limited/Unobtainable: No Constitutional: Reports: malaise, weakness HEENT: Reports: no symptoms Cardiovascular: Reports: no symptoms Respiratory: Reports: no symptoms Gastrointestinal/Abdominal: Reports: no symptoms Genitourinary: Reports: no symptoms Neurologic/Psychiatric: Reports: no symptoms Endocrine: Reports: no symptoms Hematologic/Lymphatic: Reports: no symptoms Allergies: Coded Allergies: ASPIRIN (Verified Allergy, Mild, 10/20/14) All Systems: reviewed and negative except above Subjective no bleeding. egd with esophagitis. +blood cultures. [place] [facility] [place] Objective Last 24 Hour Vital Signs Date Time Temp Pulse Resp B/P (MAP) Pulse Ox O2 Delivery O2 Flow Rate FiO2 02/13/18 12:00 97.5 106 20 142/94 97 Room Air 02/13/18 12:00 Room Air 02/13/18 11:36 107 02/13/18 08:14 97.7 103 20 147/93 100 Room Air 02/13/18 08:09 102 02/13/18 08:00 Room Air 02/13/18 04:00 Room Air 02/13/18 04:00 98.3 100 20 155/91 97 Room Air 02/13/18 03:43 101 02/13/18 00:00 Room Air 02/13/18 00:00 98.5 102 24 145/91 96 Room Air 02/12/18 23:24 108 02/12/18 20:00 98.1 101 20 146/84 100 Room Air 02/12/18 20:00 Room Air 02/12/18 19:06 105 Intake and Output 02/12/18 02/13/18 19:00 07:00 Intake Total 2780 ml 3001.47 ml Output Total 700 ml 750 ml Balance 2080 ml 2251.47 ml Intake Oral 650 ml 500 ml IV Total 2130 ml 2501.47 ml Output Urine Total 700 ml 750 ml Laboratory Tests 02/13/18 03:00: White Blood Count 24.0*H, Red Blood Count 2.65L, Hemoglobin 9.0L, Hematocrit 27.2L, Mean Corpuscular Volume 103H, Mean Corpuscular Hemoglobin 34.1H, Mean Corpuscular Hemoglobin Concent 33.2, Red Cell Distribution Width 13.7, Platelet Count 293, Mean Platelet Volume 7.6, Neutrophils (%) (Auto) , Lymphocytes (%) ( Auto) , Monocytes (%) (Auto) , Eosinophils (%) (Auto) , Basophils (%) (Auto) , Differential Total Cells Counted 100, Neutrophils % (Manual) 84H, Lymphocytes % (Manual) 8L, Monocytes % (Manual) 8, Eosinophils % (Manual) 0, Basophils % ( Manual) 0, Band Neutrophils 0, Platelet Estimate Adequate, Platelet Morphology Normal, Hypochromasia 1+, Macrocytosis 1+, Sodium Level 132L, Potassium Level 4.2, Chloride Level 100, Carbon Dioxide Level 18L, Anion Gap 14, Blood Urea Nitrogen 86H, Creatinine 3.2H, Estimat Glomerular Filtration Rate 19.7, Glucose Level 83, Calcium Level 7.7L Height (Feet): 5 Height (Inches): 10.00 Weight (Pounds): 117 General Appearance: WD/WN, alert Neck: supple Cardiovascular: normal rate, regular rhythm Respiratory/Chest: lungs clear, normal breath sounds Abdomen: normal bowel sounds, non tender, soft, no organomegaly Edema: no edema noted Arm (L), no edema noted Arm (R), no edema noted Leg (L), no edema noted Leg (R), no edema noted Pedal (L), no edema noted Pedal (R), no edema noted 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
--- NOTE | 2018-02-13 18:01 | Nephrology Progress Note ---
Assessment/Plan Problem List: (1) Malnutrition of moderate degree (2) BANDAR (acute kidney injury) (3) Upper GI bleed (4) Acute blood loss anemia Plan continue iv hydration, trend lab, expect edema as very low alb bun and creat lower Subjective Constitutional: Reports: weakness HEENT: Reports: no symptoms Genitourinary: Reports: no symptoms Neurologic/Psychiatric: Reports: no symptoms Objective Objective Last 24 Hour Vital Signs Date Time Temp Pulse Resp B/P (MAP) Pulse Ox O2 Delivery O2 Flow Rate FiO2 02/13/18 16:15 109 02/13/18 16:00 Room Air 02/13/18 16:00 97.3 108 20 144/93 98 Room Air 02/13/18 12:00 97.5 106 20 142/94 97 Room Air 02/13/18 12:00 Room Air 02/13/18 11:36 107 02/13/18 08:14 97.7 103 20 147/93 100 Room Air 02/13/18 08:09 102 02/13/18 08:00 Room Air 02/13/18 04:00 Room Air 02/13/18 04:00 98.3 100 20 155/91 97 Room Air 02/13/18 03:43 101 02/13/18 00:00 Room Air 02/13/18 00:00 98.5 102 24 145/91 96 Room Air 02/12/18 23:24 108 02/12/18 20:00 98.1 101 20 146/84 100 Room Air 02/12/18 20:00 Room Air 02/12/18 19:06 105 Intake and Output 02/12/18 02/13/18 19:00 07:00 Intake Total 2780 ml 3001.47 ml Output Total 700 ml 750 ml Balance 2080 ml 2251.47 ml Intake Oral 650 ml 500 ml IV Total 2130 ml 2501.47 ml Output Urine Total 700 ml 750 ml Laboratory Tests 02/13/18 03:00: White Blood Count 24.0*H, Red Blood Count 2.65L, Hemoglobin 9.0L, Hematocrit 27.2L, Mean Corpuscular Volume 103H, Mean Corpuscular Hemoglobin 34.1H, Mean Corpuscular Hemoglobin Concent 33.2, Red Cell Distribution Width 13.7, Platelet Count 293, Mean Platelet Volume 7.6, Neutrophils (%) (Auto) , Lymphocytes (%) ( Auto) , Monocytes (%) (Auto) , Eosinophils (%) (Auto) , Basophils (%) (Auto) , Differential Total Cells Counted 100, Neutrophils % (Manual) 84H, Lymphocytes % (Manual) 8L, Monocytes % (Manual) 8, Eosinophils % (Manual) 0, Basophils % ( Manual) 0, Band Neutrophils 0, Platelet Estimate Adequate, Platelet Morphology Normal, Hypochromasia 1+, Macrocytosis 1+, Sodium Level 132L, Potassium Level 4.2, Chloride Level 100, Carbon Dioxide Level 18L, Anion Gap 14, Blood Urea Nitrogen 86H, Creatinine 3.2H, Estimat Glomerular Filtration Rate 19.7, Glucose Level 83, Calcium Level 7.7L Height (Feet): 5 Height (Inches): 10.00 Weight (Pounds): 117 General Appearance: no apparent distress, alert EENT: normal ENT inspection Neck: normal alignment Cardiovascular: normal rate, regular rhythm Respiratory/Chest: lungs clear Abdomen: non tender, soft Extremities: moderate edema 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
[2018-02-13 20:00] VITALS: BP 149/90
[2018-02-13] MEDS ORDERED: Pantoprazole Inj ONE (20:56)
[2018-02-13] MEDS: ceFAZolin sod 0.5 GM in D5W 55 ML IV SCH (21:07)
[2018-02-14] VITALS: BP 149/92
[2018-02-14 04:00] VITALS: BP 140/90
[2018-02-14] MEDS ORDERED: Pantoprazole Inj ONE (05:24)
[2018-02-14 05:57] LABS: ANION GAP 11 mmol/L (5-15); BLOOD UREA NITROGEN 63 mg/dL (7-18); CALCIUM 7.8 MG/DL (8.5-10.1); CARBON DIOXIDE 16 MMOL/L (21-32); CHLORIDE 103 MMOL/L (98-107); CREATININE 2.3 MG/DL (0.55-1.30); PHOSPHORUS 2.1 MG/DL (2.5-4.9); POTASSIUM 5.5 MMOL/L (3.5-5.1); SODIUM 130 MMOL/L (136-145)
[2018-02-14] MEDS: Pantoprazole 80 MG in NS 250 ML IV SCH ×2 (06:02→17:34)
[2018-02-14 06:20] LABS: HEMATOCRIT 25.8 % (42.0-52.0); HEMOGLOBIN 8.7 G/DL (14.2-18.0); MEAN CORPUSCULAR VOLUME 103 FL (80-99); PLATELET COUNT 278 K/UL (150-450); RED BLOOD COUNT 2.51 M/UL (4.70-6.10); RED CELL DISTRIBUTION WIDTH 14.1 % (11.6-14.8)
[2018-02-14 06:22] LABS: WHITE BLOOD COUNT 24.5 K/UL (4.8-10.8)
--- NOTE | 2018-02-14 07:58 | Nephrology Progress Note ---
Assessment/Plan Problem List: (1) Malnutrition of moderate degree (2) BANDAR (acute kidney injury) (3) Upper GI bleed (4) Acute blood loss anemia (5) Sepsis Plan continue iv hydration, trend lab, expect edema as very low alb bun and creat lower, K higher dc kcl, rx mrsa sepsis Subjective Constitutional: Reports: weakness HEENT: Reports: no symptoms Genitourinary: Reports: incontinence Neurologic/Psychiatric: Reports: no symptoms Objective Objective Last 24 Hour Vital Signs Date Time Temp Pulse Resp B/P (MAP) Pulse Ox O2 Delivery O2 Flow Rate FiO2 02/14/18 04:00 Room Air 02/14/18 04:00 97.4 109 20 140/90 98 Room Air 02/14/18 03:23 106 02/14/18 00:00 Room Air 02/14/18 00:00 107 02/14/18 00:00 97.8 108 24 149/92 97 Room Air 02/13/18 20:00 Room Air 02/13/18 20:00 97.5 112 20 149/90 96 Room Air 02/13/18 19:28 112 02/13/18 16:15 109 02/13/18 16:00 Room Air 02/13/18 16:00 97.3 108 20 144/93 98 Room Air 02/13/18 12:00 97.5 106 20 142/94 97 Room Air 02/13/18 12:00 Room Air 02/13/18 11:36 107 02/13/18 08:14 97.7 103 20 147/93 100 Room Air 02/13/18 08:09 102 02/13/18 08:00 Room Air Intake and Output 02/13/18 02/14/18 18:59 06:59 Intake Total 2320.41 ml 1711.78 ml Output Total 700 ml 600 ml Balance 1620.41 ml 1111.78 ml Intake Oral 240 ml 300 ml IV Total 2080.41 ml 1411.78 ml Output Urine Total 700 ml 600 ml Laboratory Tests 02/14/18 03:00: White Blood Count 24.5*H, Red Blood Count 2.51L, Hemoglobin 8.7L, Hematocrit 25.8L, Mean Corpuscular Volume 103H, Mean Corpuscular Hemoglobin 34.6H, Mean Corpuscular Hemoglobin Concent 33.6, Red Cell Distribution Width 14.1, Platelet Count 278, Mean Platelet Volume 7.2, Neutrophils (%) (Auto) , Lymphocytes (%) ( Auto) , Monocytes (%) (Auto) , Eosinophils (%) (Auto) , Basophils (%) (Auto) , Neutrophils % (Manual) [Pending], Lymphocytes % (Manual) [Pending], Platelet Estimate [Pending], Platelet Morphology [Pending], Sodium Level 130L, Potassium Level 5.5H, Chloride Level 103, Carbon Dioxide Level 16L, Anion Gap 11, Blood Urea Nitrogen 63H, Creatinine 2.3H, Estimat Glomerular Filtration Rate 28.8, Glucose Level 83, Calcium Level 7.8L, Phosphorus Level 2.1L, Magnesium Level 1.6L Height (Feet): 5 Height (Inches): 10.00 Weight (Pounds): 117 General Appearance: no apparent distress, alert EENT: normal ENT inspection Neck: normal alignment Cardiovascular: regular rhythm Respiratory/Chest: lungs clear Abdomen: non tender, soft, other - likely ascites 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
[2018-02-14 08:00] VITALS: BP 150/98
[2018-02-14] MEDS: ceFAZolin sod 0.5 GM in D5W 55 ML IV SCH ×2 (09:25→21:06)
[2018-02-14] MEDS ORDERED: Sodium Polystyrene Sulfonate 15gm Powder ORAL SCH (09:45)
--- NOTE | 2018-02-14 09:46 | General Progress Note ---
Assessment/Plan Problem List: (1) Discitis ICD Codes: M46.40 - Discitis, unspecified, site unspecified SNOMED: 3445245 (2) Hypovolemic shock ICD Codes: R57.1 - Hypovolemic shock SNOMED: 05243729 (3) Gastritis ICD Codes: K29.70 - Gastritis SNOMED: 9394976 (4) Hypotension ICD Codes: I95.9 - Hypotension, unspecified SNOMED: 58099655 (5) Upper GI bleed ICD Codes: K92.2 - Gastrointestinal hemorrhage, unspecified SNOMED: 38612844 (6) Leukocytosis ICD Codes: D72.829 - Elevated white blood cell count, unspecified SNOMED: 053014456, 652093083 (7) BANDAR (acute kidney injury) ICD Codes: N17.9 - Acute kidney failure, unspecified SNOMED: 97798615 Assessment/Plan iv abx follow up cultures ivf monitor renal fxn ppi po transfer for higher level of care for spine eval Subjective ROS Limited/Unobtainable: No Constitutional: Reports: no symptoms HEENT: Reports: no symptoms Cardiovascular: Reports: no symptoms Respiratory: Reports: no symptoms Gastrointestinal/Abdominal: Reports: no symptoms Genitourinary: Reports: no symptoms Neurologic/Psychiatric: Reports: no symptoms Endocrine: Reports: no symptoms Hematologic/Lymphatic: Reports: no symptoms Allergies: Coded Allergies: ASPIRIN (Verified Allergy, Mild, 10/20/14) All Systems: reviewed and negative except above Subjective no bleeding. renal fxn improving. +back pain. wbc elevated. accepted to [facility]. await bed cont abx. cont ivf kayexylate x 1 Objective Last 24 Hour Vital Signs Date Time Temp Pulse Resp B/P (MAP) Pulse Ox O2 Delivery O2 Flow Rate FiO2 02/14/18 08:00 Room Air 02/14/18 08:00 97.3 113 22 150/98 94 Room Air 02/14/18 07:49 111 02/14/18 04:00 Room Air 02/14/18 04:00 97.4 109 20 140/90 98 Room Air 02/14/18 03:23 106 02/14/18 00:00 Room Air 02/14/18 00:00 107 02/14/18 00:00 97.8 108 24 149/92 97 Room Air 12/13/18 20:00 Room Air 02/13/18 20:00 97.5 112 20 149/90 96 Room Air 02/13/18 19:28 112 02/13/18 16:15 109 02/13/18 16:00 Room Air 02/13/18 16:00 97.3 108 20 144/93 98 Room Air 02/13/18 12:00 97.5 106 20 142/94 97 Room Air 02/13/18 12:00 Room Air 02/13/18 11:36 107 Intake and Output 02/13/18 02/14/18 18:59 06:59 Intake Total 2320.41 ml 1711.78 ml Output Total 700 ml 600 ml Balance 1620.41 ml 1111.78 ml Intake Oral 240 ml 300 ml IV Total 2080.41 ml 1411.78 ml Output Urine Total 700 ml 600 ml Laboratory Tests 02/14/18 03:00: White Blood Count 24.5*H, Red Blood Count 2.51L, Hemoglobin 8.7L, Hematocrit 25.8L, Mean Corpuscular Volume 103H, Mean Corpuscular Hemoglobin 34.6H, Mean Corpuscular Hemoglobin Concent 33.6, Red Cell Distribution Width 14.1, Platelet Count 278, Mean Platelet Volume 7.2, Neutrophils (%) (Auto) , Lymphocytes (%) ( Auto) , Monocytes (%) (Auto) , Eosinophils (%) (Auto) , Basophils (%) (Auto) , Differential Total Cells Counted 100, Neutrophils % (Manual) 77H, Lymphocytes % (Manual) 7L, Monocytes % (Manual) 15H, Eosinophils % (Manual) 1, Basophils % ( Manual) 0, Band Neutrophils 0, Platelet Estimate Adequate, Platelet Morphology Normal, Hypochromasia 2+, Anisocytosis 1+, Macrocytosis 1+, Spherocytes 2+, Sodium Level 130L, Potassium Level 5.5H, Chloride Level 103, Carbon Dioxide Level 16L, Anion Gap 11, Blood Urea Nitrogen 63H, Creatinine 2.3H, Estimat Glomerular Filtration Rate 28.8, Glucose Level 83, Calcium Level 7.8L, Phosphorus Level 2.1L, Magnesium Level 1.6L Height (Feet): 5 Height (Inches): 10.00 Weight (Pounds): 117 Tony Tenorio MD Feb 14, 2018 09:46
--- NOTE | 2018-02-14 11:02 | Infectious Diseases Prog Note ---
Assessment/Plan Assessment/Plan antibiotics : ancef A 1. staph aureus sepsis 2. staph aureus UTI 3. leucocytosis 4. renal failure improving 5. GI bleeding 6. nasal MRSA colonization P 1. continue ancef 2. will follow up cultures Subjective Constitutional: Denies: fever, chills Respiratory: Denies: shortness of breath, dry cough Gastrointestinal/Abdominal: Denies: nausea, vomiting, diarrhea Musculoskeletal: Denies: pain Allergies: Coded Allergies: ASPIRIN (Verified Allergy, Mild, 10/20/14) Objective Vital Signs Last 24 Hour Vital Signs Date Time Temp Pulse Resp B/P (MAP) Pulse Ox O2 Delivery O2 Flow Rate FiO2 02/14/18 08:00 Room Air 02/14/18 08:00 97.3 113 22 150/98 94 Room Air 02/14/18 07:49 111 02/14/18 04:00 Room Air 02/14/18 04:00 97.4 109 20 140/90 98 Room Air 02/14/18 03:23 106 02/14/18 00:00 Room Air 02/14/18 00:00 107 02/14/18 00:00 97.8 108 24 149/92 97 Room Air 02/13/18 20:00 Room Air 02/13/18 20:00 97.5 112 20 149/90 96 Room Air 02/13/18 19:28 112 02/13/18 16:15 109 02/13/18 16:00 Room Air 02/13/18 16:00 97.3 108 20 144/93 98 Room Air 02/13/18 12:00 97.5 106 20 142/94 97 Room Air 02/13/18 12:00 Room Air 02/13/18 11:36 107 Height (Feet): 5 Height (Inches): 10.00 Weight (Pounds): 117 Respiratory/Chest: lungs clear Cardiovascular: normal rate, regular rhythm, no gallop/murmur Abdomen: soft, non tender Extremities: no edema Laboratory Tests Test 02/14/18 03:00 White Blood Count 24.5 K/UL (4.8-10.8) *H Red Blood Count 2.51 M/UL (4.70-6.10) L Hemoglobin 8.7 G/DL (14.2-18.0) L Hematocrit 25.8 % (42.0-52.0) L Mean Corpuscular Volume 103 FL (80-99) H Mean Corpuscular Hemoglobin 34.6 PG (27.0-31.0) H Mean Corpuscular Hemoglobin Concent 33.6 G/DL (32.0-36.0) Red Cell Distribution Width 14.1 % (11.6-14.8) Platelet Count 278 K/UL (150-450) Mean Platelet Volume 7.2 FL (6.5-10.1) Neutrophils (%) (Auto) % (45.0-75.0) Lymphocytes (%) (Auto) % (20.0-45.0) Monocytes (%) (Auto) % (1.0-10.0) Eosinophils (%) (Auto) % (0.0-3.0) Basophils (%) (Auto) % (0.0-2.0) Differential Total Cells Counted 100 Neutrophils % (Manual) 77 % (45-75) H Lymphocytes % (Manual) 7 % (20-45) L Monocytes % (Manual) 15 % (1-10) H Eosinophils % (Manual) 1 % (0-3) Basophils % (Manual) 0 % (0-2) Band Neutrophils 0 % (0-8) Platelet Estimate Adequate Platelet Morphology Normal Hypochromasia 2+ Anisocytosis 1+ Macrocytosis 1+ Spherocytes 2+ Sodium Level 130 MMOL/L (136-145) L Potassium Level 5.5 MMOL/L (3.5-5.1) H Chloride Level 103 MMOL/L (98-107) Carbon Dioxide Level 16 MMOL/L (21-32) L Anion Gap 11 mmol/L (5-15) Blood Urea Nitrogen 63 mg/dL (7-18) H Creatinine 2.3 MG/DL (0.55-1.30) H Estimat Glomerular Filtration Rate 28.8 mL/min (>60) Glucose Level 83 MG/DL (74-106) Calcium Level 7.8 MG/DL (8.5-10.1) L Phosphorus Level 2.1 MG/DL (2.5-4.9) L Magnesium Level 1.6 MG/DL (1.8-2.4) L Current Medications Medications (Trade) Dose Ordered Sig/Faheem Route PRN Reason Start Time Stop Time Status Last Admin Dose Admin Bisacodyl (Dulcolax) 10 mg DAILYPRN PRN RECTAL Constipation 02/11/18 16:30 03/13/18 16:29 Cefazolin Sodium 0.5 gm/Dextrose 55 ml @ 110 mls/hr EVERY 12 HOURS IV 02/13/18 21:00 02/20/18 20:59 02/14/18 09:25 Morphine Sulfate (Morphine Sulfate) 1 mg Q4H PRN IVP Severe Pain (Pain Scale 7-10) 02/11/18 16:30 02/18/18 16:29 02/12/18 20:08 Ondansetron HCl (Zofran) 4 mg Q6H PRN IVP Nausea & Vomiting 02/11/18 16:30 03/13/18 10:29 02/14/18 09:27 Pantoprazole 80 mg/Sodium Chloride 250 ml @ 25 mls/hr Q10H IV 02/11/18 18:26 03/13/18 18:25 02/14/18 06:02 Sodium Polystyrene Sulfonate (Kayexalate) 30 gm ONCE ORAL 02/14/18 09:45 02/14/18 11:00 02/14/18 10:13 Sodium Chloride 1,000 ml @ 100 mls/hr Q10H IV 02/14/18 08:00 03/16/18 07:59 02/14/18 09:25 Summer Doshi MD Feb 14, 2018 11:02
[2018-02-14 12:00] VITALS: BP 140/94
--- NOTE | 2018-02-14 12:37 | GI Progress Note ---
Assessment/Plan Problems: (1) Upper GI bleed ICD Codes: K92.2 - Gastrointestinal hemorrhage, unspecified SNOMED: 64257993 (2) Esophageal ulcer ICD Codes: K22.10 - Esophageal ulcer SNOMED: 98148443 (3) Esophagitis ICD Codes: K20.9 - Esophagitis SNOMED: 84416597 (4) Upper GI bleed ICD Codes: K92.2 - Gastrointestinal hemorrhage, unspecified SNOMED: 19110772 Status: stable Status Narrative Discussed with Dr. Hernandez. Assessment/Plan SUMMARY OF FINDINGS: 1. A 5-cm hiatal hernia. 2. Severe distal esophagitis and ulcerations, questionable infectious versus acid reflux related given hiatal hernia. Follow biopsy results. 3. Gastritis, status post biopsy. 4. Prepyloric ulcer and also duodenal ulcer. RECOMMENDATIONS: Follow up biopsy results and treat accordingly. adv diet as tolerated Monitor hemoglobin and hematocrit. Transfuse as needed to keep hemoglobin above 7. Continue on Protonix. abx fu labs outpatient follow up The patient was seen and examined at bedside and all new and available data was reviewed in the patients chart. I agree with the above findings, impression and plan. (Patient seen earlier today. Signature stamp does not reflect patient encounter time.). - David Hernandez MD Subjective Subjective tolerating diet Objective Last 24 Hour Vital Signs Date Time Temp Pulse Resp B/P (MAP) Pulse Ox O2 Delivery O2 Flow Rate FiO2 02/14/18 12:00 98.1 116 22 140/94 96 Room Air 02/14/18 12:00 Room Air 02/14/18 08:00 Room Air 02/14/18 08:00 97.3 113 22 150/98 94 Room Air 02/14/18 07:49 111 02/14/18 04:00 Room Air 02/14/18 04:00 97.4 109 20 140/90 98 Room Air 02/14/18 03:23 106 02/14/18 00:00 Room Air 02/14/18 00:00 107 02/14/18 00:00 97.8 108 24 149/92 97 Room Air 02/13/18 20:00 Room Air 02/13/18 20:00 97.5 112 20 149/90 96 Room Air 02/13/18 19:28 112 02/13/18 16:15 109 12/13/18 16:00 Room Air 02/13/18 16:00 97.3 108 20 144/93 98 Room Air Intake and Output 02/13/18 02/14/18 19:00 07:00 Intake Total 2120.41 ml 1861.78 ml Output Total 700 ml 600 ml Balance 1420.41 ml 1261.78 ml Intake Oral 240 ml 300 ml IV Total 1880.41 ml 1561.78 ml Output Urine Total 700 ml 600 ml Laboratory Tests Test 02/14/18 03:00 White Blood Count 24.5 K/UL (4.8-10.8) *H Red Blood Count 2.51 M/UL (4.70-6.10) L Hemoglobin 8.7 G/DL (14.2-18.0) L Hematocrit 25.8 % (42.0-52.0) L Mean Corpuscular Volume 103 FL (80-99) H Mean Corpuscular Hemoglobin 34.6 PG (27.0-31.0) H Mean Corpuscular Hemoglobin Concent 33.6 G/DL (32.0-36.0) Red Cell Distribution Width 14.1 % (11.6-14.8) Platelet Count 278 K/UL (150-450) Mean Platelet Volume 7.2 FL (6.5-10.1) Neutrophils (%) (Auto) % (45.0-75.0) Lymphocytes (%) (Auto) % (20.0-45.0) Monocytes (%) (Auto) % (1.0-10.0) Eosinophils (%) (Auto) % (0.0-3.0) Basophils (%) (Auto) % (0.0-2.0) Differential Total Cells Counted 100 Neutrophils % (Manual) 77 % (45-75) H Lymphocytes % (Manual) 7 % (20-45) L Monocytes % (Manual) 15 % (1-10) H Eosinophils % (Manual) 1 % (0-3) Basophils % (Manual) 0 % (0-2) Band Neutrophils 0 % (0-8) Platelet Estimate Adequate Platelet Morphology Normal Hypochromasia 2+ Anisocytosis 1+ Macrocytosis 1+ Spherocytes 2+ Sodium Level 130 MMOL/L (136-145) L Potassium Level 5.5 MMOL/L (3.5-5.1) H Chloride Level 103 MMOL/L (98-107) Carbon Dioxide Level 16 MMOL/L (21-32) L Anion Gap 11 mmol/L (5-15) Blood Urea Nitrogen 63 mg/dL (7-18) H Creatinine 2.3 MG/DL (0.55-1.30) H Estimat Glomerular Filtration Rate 28.8 mL/min (>60) Glucose Level 83 MG/DL (74-106) Calcium Level 7.8 MG/DL (8.5-10.1) L Phosphorus Level 2.1 MG/DL (2.5-4.9) L Magnesium Level 1.6 MG/DL (1.8-2.4) L Height (Feet): 5 Height (Inches): 10.00 Weight (Pounds): 117 General Appearance: WD/WN, no apparent distress, alert Cardiovascular: normal rate Respiratory/Chest: normal breath sounds, no respiratory distress Abdominal Exam: normal bowel sounds, non tender, soft Extremities: non-tender Bhavin Judge NP Feb 14, 2018 12:37
[2018-02-14 15:39] VITALS: BP 143/84
[2018-02-14] MEDS: Morphine Sulfate 2mg/ml Inj IVP PRN ×2 (17:13→22:17)
[2018-02-14 20:00] VITALS: BP 136/81
[2018-02-14] MEDS ORDERED: Miralax 17gm pkt ORAL SCH (21:00)
[2018-02-15] VITALS: BP 137/86
[2018-02-15] MEDS: Pantoprazole 80 MG in NS 250 ML IV SCH ×2 (02:35→12:57)
[2018-02-15 04:00] VITALS: BP 130/68
[2018-02-15 05:24] LABS: ALANINE AMINOTRANSFERASE 6 U/L (12-78); ALBUMIN 1.5 G/DL (3.4-5.0); ALBUMIN/GLOBULIN RATIO 0.3 (1.0-2.7); ALKALINE PHOSPHATASE 259 U/L (46-116); ANION GAP 12 mmol/L (5-15); ASPARTATE AMINO TRANSFERASE 50 U/L (15-37); BILIRUBIN,TOTAL 2.7 MG/DL (0.2-1.0); BLOOD UREA NITROGEN 53 mg/dL (7-18); CARBON DIOXIDE 16 MMOL/L (21-32); CHLORIDE 104 MMOL/L (98-107); PHOSPHORUS 2.9 MG/DL (2.5-4.9); POTASSIUM 5.3 MMOL/L (3.5-5.1); SODIUM 132 MMOL/L (136-145)
[2018-02-15 05:26] LABS: BILIRUBIN,DIRECT 2.1 MG/DL (0.0-0.3)
[2018-02-15 08:00] VITALS: BP 133/82
[2018-02-15] MEDS: Morphine Sulfate 2mg/ml Inj IVP PRN ×2 (08:04→16:54)
[2018-02-15] MEDS: ceFAZolin sod 0.5 GM in D5W 55 ML IV SCH (08:56)
--- NOTE | 2018-02-15 11:59 | Diagnostic Imaging Report ---
EXAM: XR Chest, 1 View CLINICAL HISTORY: SOB TECHNIQUE: Frontal view of the chest. COMPARISON: Chest x-ray 02/10/18 FINDINGS: Lungs: Bilateral interstitial prominence and vascular congestion. There is focal wedge-shaped right upper lobe peripheral airspace opacity. Pleural space: probable small bilateral pleural effusions. Heart: Cardiomegaly. Mediastinum: Unremarkable. Bones/joints: No acute process. IMPRESSION: Bilateral interstitial prominence and vascular congestion. There is focal wedge-shaped right upper lobe peripheral airspace opacity. Probable small bilateral pleural effusions. Constellation of findings may be CHF, cannot exclude infection with focal right upper lobe pneumonia.
[2018-02-15 12:00] VITALS: BP 132/79
--- NOTE | 2018-02-15 12:57 | General Progress Note ---
Assessment/Plan Problem List: (1) Discitis ICD Codes: M46.40 - Discitis, unspecified, site unspecified SNOMED: 4122947 (2) Hypovolemic shock ICD Codes: R57.1 - Hypovolemic shock SNOMED: 57624186 (3) Gastritis ICD Codes: K29.70 - Gastritis SNOMED: 6293795 (4) Hypotension ICD Codes: I95.9 - Hypotension, unspecified SNOMED: 26913206 (5) Upper GI bleed ICD Codes: K92.2 - Gastrointestinal hemorrhage, unspecified SNOMED: 75705870 (6) Leukocytosis ICD Codes: D72.829 - Elevated white blood cell count, unspecified SNOMED: 893157219, 753548116 (7) BANDAR (acute kidney injury) ICD Codes: N17.9 - Acute kidney failure, unspecified SNOMED: 19793548 Status: stable Assessment/Plan iv abx follow up cultures dc ivf lasix kayexylate x 1 monitor renal fxn ppi po transfer for higher level of care for spine eval Subjective ROS Limited/Unobtainable: No Constitutional: Reports: malaise, weakness HEENT: Reports: no symptoms Cardiovascular: Reports: no symptoms Respiratory: Reports: cough, shortness of breath Gastrointestinal/Abdominal: Reports: no symptoms Genitourinary: Reports: no symptoms Neurologic/Psychiatric: Reports: no symptoms Endocrine: Reports: no symptoms Hematologic/Lymphatic: Reports: no symptoms Allergies: Coded Allergies: ASPIRIN (Verified Allergy, Mild, 10/20/14) All Systems: reviewed and negative except above Subjective increased sob. cxr with chf. oniv abx. awaiting bed at outside hospital. high k noted Objective Last 24 Hour Vital Signs Date Time Temp Pulse Resp B/P (MAP) Pulse Ox O2 Delivery O2 Flow Rate FiO2 02/15/18 12:00 97.0 140 44 132/79 91 Room Air 02/15/18 08:34 97.0 02/15/18 08:00 117 02/15/18 08:00 Room Air 02/15/18 08:00 97.0 114 48 133/82 97 Room Air 02/15/18 04:00 Room Air 02/15/18 04:00 118 02/15/18 04:00 98.1 122 25 130/68 96 Room Air 02/15/18 00:00 98.1 122 25 137/86 95 Room Air 02/15/18 00:00 Room Air 02/15/18 00:00 119 02/14/18 20:00 98.7 125 24 136/81 94 Room Air 02/14/18 20:00 Room Air 02/14/18 20:00 123 02/14/18 16:00 Room Air 02/14/18 15:39 98.4 118 22 143/84 94 Room Air 02/14/18 15:22 121 Intake and Output 02/14/18 02/15/18 18:59 06:59 Intake Total 1364.13 ml 1620.4 ml Output Total 650 ml 650 ml Balance 714.13 ml 970.4 ml Intake Oral 240 ml 120 ml IV Total 1124.13 ml 1500.4 ml Output Urine Total 650 ml 650 ml Laboratory Tests 02/15/18 04:40: Sodium Level 132L, Potassium Level 5.3H, Chloride Level 104, Carbon Dioxide Level 16L, Anion Gap 12, Blood Urea Nitrogen 53H, Creatinine 2.0H, Estimat Glomerular Filtration Rate 33.8, Glucose Level 77, Calcium Level 8.0L, Phosphorus Level 2.9, Total Bilirubin 2.7H, Direct Bilirubin 2.1H, Aspartate Amino Transf (AST/SGOT) 50H, Alanine Aminotransferase (ALT/SGPT) 6L, Alkaline Phosphatase 259H, Total Protein 6.9, Albumin 1.5L, Globulin 5.4, Albumin/ Globulin Ratio 0.3L Height (Feet): 5 Height (Inches): 10.00 Weight (Pounds): 200 General Appearance: WD/WN, alert Neck: supple Cardiovascular: normal rate Respiratory/Chest: rhonchi - bilaterally Abdomen: normal bowel sounds, non tender, soft, no organomegaly Edema: no edema noted Arm (L), no edema noted Arm (R), no edema noted Leg (L), no edema noted Leg (R), no edema noted Pedal (L), no edema noted Pedal (R), no edema noted Generalized Tony Tenorio MD Feb 15, 2018 12:57
[2018-02-15] MEDS ORDERED: Sodium Polystyrene Sulfonate 15gm Powder ORAL SCH (13:00)
[2018-02-15] MEDS ORDERED: NS 275ml ONE ×2 (15:49→19:24)
[2018-02-15] MEDS ORDERED: Tubing IV Secondary IV ONE ×2 (15:49→19:24)
[2018-02-15] MEDS ORDERED: 1/2 NS 1000ml IV ONE (15:49)
[2018-02-15 16:00] VITALS: BP 147/80
--- NOTE | 2018-02-15 16:41 | Nephrology Progress Note ---
Assessment/Plan Assessment 1) Mario has improved 2) ? underlying CHF 3) He seems to be in CHF, ? acute diastolic CHF 4) Some malnutrition( Moderate 5) S/P GI bleed due to gastritis and esophagitis Plan: Will give lasix 80 mg IV Q8 x2 Serial troponin Labs in AM Subjective Subjective He is very sob and tachypneic, no c/p, WBC is up to 24K Objective Objective Last 24 Hour Vital Signs Date Time Temp Pulse Resp B/P (MAP) Pulse Ox O2 Delivery O2 Flow Rate FiO2 02/15/18 12:00 97.0 140 44 132/79 91 Room Air 02/15/18 12:00 115 02/15/18 12:00 Room Air 02/15/18 08:34 97.0 02/15/18 08:00 117 02/15/18 08:00 Room Air 02/15/18 08:00 97.0 114 48 133/82 97 Room Air 02/15/18 04:00 Room Air 02/15/18 04:00 118 02/15/18 04:00 98.1 122 25 130/68 96 Room Air 02/15/18 00:00 98.1 122 25 137/86 95 Room Air 02/15/18 00:00 Room Air 02/15/18 00:00 119 02/14/18 20:00 98.7 125 24 136/81 94 Room Air 02/14/18 20:00 Room Air 02/14/18 20:00 123 Intake and Output 02/14/18 02/15/18 19:00 07:00 Intake Total 1314.13 ml 1620.4 ml Output Total 650 ml 650 ml Balance 664.13 ml 970.4 ml Intake Oral 240 ml 120 ml IV Total 1074.13 ml 1500.4 ml Output Urine Total 650 ml 650 ml Laboratory Tests 02/15/18 04:40: Sodium Level 132L, Potassium Level 5.3H, Chloride Level 104, Carbon Dioxide Level 16L, Anion Gap 12, Blood Urea Nitrogen 53H, Creatinine 2.0H, Estimat Glomerular Filtration Rate 33.8, Glucose Level 77, Calcium Level 8.0L, Phosphorus Level 2.9, Total Bilirubin 2.7H, Direct Bilirubin 2.1H, Aspartate Amino Transf (AST/SGOT) 50H, Alanine Aminotransferase (ALT/SGPT) 6L, Alkaline Phosphatase 259H, Total Protein 6.9, Albumin 1.5L, Globulin 5.4, Albumin/ Globulin Ratio 0.3L Height (Feet): 5 Height (Inches): 10.00 Weight (Pounds): 200 General Appearance: WD/WN, alert, moderate distress EENT: PERRL/EOMI Neck: non-tender, normal alignment, supple Cardiovascular: normal rate, regular rhythm, JVD - high, tachycardia Respiratory/Chest: chest wall non-tender, expiratory wheezing Abdomen: non tender, soft Extremities: normal range of motion Neurologic: skilled helper II-XII grossly normal Domingo Hernández MD Feb 15, 2018 16:41
--- NOTE | 2018-02-17 11:28 | Discharge Summary ---
Discharge Summary Discharge Summary _ DATE OF ADMISSION: 02/10/2018 DATE OF DISCHARGE: 02/15/2018 DISCHARGED BY: Dr. Tenorio REASON FOR ADMISSION: 62 years old male with past medical history of esophageal varices, GI bleeding, hip replacement surgery, psoriasis, presented from home with complaints of vomiting blood. Patient reported 4 episodes of vomiting bright red blood. He denied alcohol use, use of aspirin or nonsteroidal anti-inflammatory drugs. Upon evaluation vital signs reveal hypotension with blood pressure 86/67. Laboratory workup revealed significant leukocytosis WBC 21.8. Hemoglobin 12.2, hematocrit 35.0 . Lactic acid 2.3. Stable coagulation profile. Sodium 128. Potassium 3.0. BUN 108. Creatinine 5.5. AST 72. ALT 18. Urine toxicology screen was positive for marijuana. Serum alcohol level was less than 2. Chest x-ray revealed no acute cardiopulmonary pathology. Troponin negative. CT of the abdomen and pelvis revealed cholelithiasis. Thickening of the distal wall of the esophagus. Nonobstructive stone in the right kidney. Normal appendix. Moderate degenerative changes of the spine. Bilateral hip prosthesis. Renal ultrasound revealed no evidence of obstructive nephropathy. Suspected small nonobstructive stone left kidney. Noted distended urinary bladder. Fatty liver. Patient was admitted for further management CONSULTANTS: ID specialist Dr. Doshi GI specialist Dr. Hernandez parts remover Dr. Gudino HOSPITAL COURSE: Patient admitted to direct observational unit. Patient started on Protonix and octreotide drips. GI consult requested. Patient was kept n.p.o. and started on the IV fluids. Blood pressure was clsoely monitored , responded to intravenous hydration. Initial hypovolemic shock resolved Hemoglobin and hematocrit were closely monitored. Hemoglobin next day dropped from 12.2 down to 9.3 . Patient subsequently undergone upper endoscopy with biopsy on with finding of a 5 cm hiatal hernia, severe distal esophagitis and ulceration, questionable infectious versus acid reflux related to hiatal hernia. Gastritis, status post biopsy. Prepyloric ulcer and duodenal ulcer. Patient was kept n.p.o. overnight and slowly started on diet in the morning and was advanced as tolerated . Protonix was continued, and octreotide drip was discontinued. Hemoglobin and hematocrit were closely monitored with goal to keep hemoglobin above 7. No further episodes of GI bleeding. No need for transfusion. Prior to transfer hemoglobin 8.7 hematocrit 25.8. Biopsy of antrum revealed gastric mucosa with no significant diagnostic abnormality. No H. pylori was identified. Biopsy of distal esophagus revealed mild chronic carditis with reactive changes. ID specialist closely followed. Patient started on broad-spectrum antibiotics. Blood and urine culture revealed growth of Staphylococcus aureus. Repeated blood culture on still revealed Staph aureus . There was a concern of probable discitis. Patient had persistent significant leukocytosis over 20. . Echocardiogram revealed preserved ejection fraction 55%. No evidence of vegetation. No wall motion abnormality. Right ventricular systolic pressure of 60 consistent with a severe pulmonary hypertension. Venous duplex bilateral lower extremity revealed no evidence of acute DVT. Supplemental oxygen provided as needed to keep pulse oximetry above 92%. [employer] closely followed. Patient was on IV hydration with close monitoring of renal parameters and electrolytes. Electrolytes corrected as needed. Nephrotoxins were avoided. Prior to transfer BUN 53 creatinine 2.0. Nutritional recommendations implemented in a plan of care. LFTs were closely monitored,trending down .HIV test was negative. Patient was transferred to [facility] for further management. FINAL DIAGNOSES: Staphylococcus aureus sepsis Staphylococcus aureus UTI Upper GI bleeding Gastrointestinal hemorrhage Acute blood loss anemia Acute kidney injury-resolving Initial hypovolemic shock -resolved Hypotension Possible discitis Esophageal ulcer Esophagitis Gastritis Protein calorie malnutrition of moderate degrees DISCHARGE MEDICATIONS: List of medication was sent to the accepting facility DISCHARGE INSTRUCTIONS: Patient was transferred to [facility] per insurance . I have been assigned to dictate discharge summary for this account. I was not involved in the patient's management. Laurel Peralta NP Feb 17, 2018 11:28
== END 2018-02-15 19:25 | disposition short-term general hospital (02) | DRG 720 ==
LOC: EDBD 19:08 → EMR 19:54 → ICU 20:07 → EDBEDREQ 20:54 → 2W 02-11 16:00
PROC: 0DB78ZX Excision of Stomach, Pylorus, Via Natural or Artificial Opening Endoscopic, Diagnostic (ICD-10-PCS; principal; 2018-02-11 13:14)
DX: A41.01 Sepsis due to Methicillin susceptible Staphylococcus aureus (principal); R57.1 Hypovolemic shock; E44.0 Moderate protein-calorie malnutrition; N17.9 Acute kidney failure, unspecified; D62 Acute posthemorrhagic anemia; K22.10 Ulcer of esophagus without bleeding; K26.9 Duodenal ulcer, unspecified as acute or chronic, without hemorrhage or perforation; N39.0 Urinary tract infection, site not specified; M46.40 Discitis, unspecified, site unspecified; K29.70 Gastritis, unspecified, without bleeding; K74.60 Unspecified cirrhosis of liver; K20.8 Other esophagitis; K22.8 Other specified diseases of esophagus; K44.9 Diaphragmatic hernia without obstruction or gangrene; Z22.322 Carrier or suspected carrier of Methicillin resistant Staphylococcus aureus; K80.20 Calculus of gallbladder without cholecystitis without obstruction
CPT/HCPCS: 36415; 71045; 74176; 76770; 80048; 80053; 80202; 80307; 80329; 81001; 82248; 82550; 82553; 82570; 83605; 83735; 83935; 84100; 84300; 84484; 85007; 85025; 85610; 85730; 86677; 86703; 86850; 86900; 86901; 86920; 87040; 87081; 87086; 87181; 93005; 93306; 93970; 94003; 94150; 96365; 96367; 96368; 96375; 99291; J0712; J2405